=== PATIENT | male | born 1970 | race Caucasian/White ===

== ENCOUNTER 2021-11-11 08:45 | Inpatient (IN) ==
[2021-11-11 08:53] LABS: ABG BASE EXCESS 11.6 mmol/L (-2.0-2.0)
[2021-11-11 08:54] LABS: ABG ALLEN TEST POS; ABG HCO3 40.6 mmol/L (22-26)
[2021-11-11 09:18] VITALS: BMI 43.0
--- NOTE | 2021-11-11 09:21 | RAD ---
HISTORYSOB, pt states his told him his lips were blue this morning. Recently been in the hospital in [place] and was told all of his testing was normal including some mri.beatriz had doneSTUDYCHEST, 1 VIEWCOMPARISONCTA from 10/29/2021FINDINGSLINES AND TUBES: NoneHEART/ PULMONARY VASCULATURE: The heart is enlarged with pulmonary vasculature congestion.LUNGS/ PLEURA: Moderate increased interstitial and mild airspace opacities, likely reflecting edema. No sizable pleural effusion. No pneumothoraxOTHER: NoneIMPRESSIONFindings most consistent with CHF/volume overload with pulmonary edema.Electronically signed by: Harry Lyon (Nov 11, 2021 09:19:34)
[2021-11-11 09:30] LABS: BASOPHILS % (AUTO) 0.5 % (0.2-1.0); EOSINOPHILS % (AUTO) 0.5 % (0.9-2.9); HEMOGLOBIN 18.5 g/dL (13.5-18.0); LYMPHOCYTES # (AUTO) 1.3 X10^3/uL (1.3-2.9); LYMPHOCYTES % (AUTO) 14.4 % (21.0-51.0); MEAN CORPUSCULAR HEMOGLOBIN 32.5 pg (27.0-34.0); MEAN CORPUSCULAR VOLUME 98.5 fL (80.0-100.0); MONOCYTES # (AUTO) 0.9 x10^3/uL (0.3-0.8); MONOCYTES % (AUTO) 10.1 % (0.0-13.0); NEUTROPHILS # (AUTO) 6.7 x10^3/uL (2.2-4.8); NEUTROPHILS % (AUTO) 74.5 % (42.0-75.0); RED CELL DISTRIBUTION WIDTH 17.3 % (11.6-16.5)
[2021-11-11 09:32] LABS: HEMATOCRIT 56.1 % (42.0-54.0)
[2021-11-11 09:41] LABS: ALANINE AMINOTRANSFERASE 29 Units/L (12-78); ALBUMIN 3.3 g/dL (3.4-5.0); ALKALINE PHOSPHATASE 67 Units/L (46-116); ASPARTATE AMINO TRANSFERASE 25 Units/L (15-37); BLOOD UREA NITROGEN 16 mg/dL (7-18); CALCIUM 7.7 mg/dL (8.5-10.1); CARBON DIOXIDE 35.9 mmol/L (21-32); CHLORIDE 99 mmol/L (98-107); COR CA(FOR HYPOALB) 8.3 mg/dL (8.5-10.1); COR NA(FOR HYPERGLY) 137 mmol/L (136-145); CREATINE KINASE 49 Units/L (39-308); SODIUM 137 mmol/L (136-145); TOTAL PROTEIN 7.2 g/dL (6.4-8.2); eGFR NON BLACK RACES > 60 (>60)
[2021-11-11 09:43] LABS: INR 1.19 (0.8-1.3)
--- NOTE | 2021-11-11 10:30 | DR.SOBA ---
HPI Time Seen Time Seen by Provider: 11/11/21 10:22 Primary Care Physician Primary Care Physician: DENA HPI Comment HPI Comment: According to pt he has been experiencining increase shortness of breath gradual in onset and has slowly worsened with intermittent cough.has ahd fever but does not know the temp it self . Complaints Chief Complaint Doctors Comments: shortness of breath Chief Complaint:: PT. JUST RECENTLY GOT HOME FROM [facility], ON THE . PT. WAS SEEN IN OUR ER ON THE AND WAS TRANSFERRED DUE HYPOXIA. STATES PT. ALSO HAD PNEUMONIA WHEN HE WAS @ [facility]. PT. HAS HAD FEVER, COUGH AND SHORTNESS OF BREATH X 2 DAYS. PT. HAS BEEN EXPOSED TO THE FLU. O2 SAT EN ROUTE TO THE HOSPITAL WAS IN THE 50'S. COVID-19 Coronavirus risk:travel/contact w/high risk person: No Has patient experienced Coronavirus symptoms: Yes Coronavirus symptoms experienced: Fever, Coughing and Shortness of Breath Reviewed Nurses Notes Reviewed: Yes Source History Provided: Patient and Family Member Mode of Arrival Mode of Arrival: Wheelchair Timing Onset of Chief Complaint: 11/09/21 Duration Duration: Days Context Onset:: At Rest and With Light Exertion PE Risk Factors:: Immobilization History of:: COPD and CHF Currently on:: Inhaled Bronchodilators Prehospital Care:: None and Inhaled B2 Modifying Factors Worsens:: Exertion Improves:: Nothing Associated Signs and Symptoms Associated Signs and Symptoms: Fever and Cough If Cough Cough: Nonproductive PMH PMH Past Medical History: Yes Past Medical History: Diabetes and Hypertension Past Surgical History: No Surgical History: No History Family History History of Family Medical Conditions: Yes Family Medical History: Diabetes Mellitus, Cancer, [place] and Hypertension Social History Does patient currently use any type of tobacco product: No Have you used tobacco products in the last 12 months: Yes Type of Tobacco Use: Cigarettes Does any household member use tobacco: Yes Alcohol Use: None Do you use any recreational Drugs:: No Lives With: Spouse Lives Where: Home Travel Risk Coronavirus risk:travel/contact w/high risk person: No Has patient experienced Coronavirus symptoms: Yes Coronavirus symptoms experienced: Fever, Coughing and Shortness of Breath Infectious screening In the last 2 months have you had wt loss of >10#?: NO Have you had fever, night sweats or hemotysis?: No Have you traveled outside the country in the last 6 months?: No Isolation: Droplet ROS Review of Systems Constitutional: Chills, Fever and Fatigue Eyes: No Symptoms Reported ENTM: No Symptoms Reported Respiratoy: See HPI Cardiovascular: No Symptoms Reported Gastrointestinal/Abdominal: No Symptoms Reported Genitourinary: No Symptoms Reported Neurological: No Symptoms Reported Musculoskeletal: No Symptoms Reported Integumentary: No Symptoms Reported Hematologic/Lymphatic: No Symptoms Reported Endocrine: No Symptoms Reported Psychiatric: No Symptoms Reported PE Vital Signs Vitals: Temperature 99.2 F Pulse Rate 71 Respiratory Rate 20 Blood Pressure 162/83 O2 Sat by Pulse Oximetry 99 General Limitations: No Limitations General Appearance: Anxious and In Distress Head Head Exam: Normal Inspection and Atraumatic Eyes Eye exam: Normal Appearance, PERRL and EOMI ENT ENT Exam: Other (low lying oropharynx ) Neck Neck Exam: Normal Inspection Chest Chest Inspection: Normal Inspection Respiratory Respiratory Exam: Bilateral: Rales Cardiovascular Cardiovascular Exam: +S1 and +S2 Abdominal Exam Abdominal Exam: Normal Bowel Sounds and Soft Extremities Extremities Exam: Normal Inspection and Full ROM Neurologic Neurological Exam: Alert Skin Skin Exam: Dry MDM Additional Information Obtained Additional Findings:: hypoxia ,copd ,fever Differential Diagnosis Differential Diagnosis: CHF, COPD, Pneumonia, Pulmonary embolism, Respiratory Failure and URI COURSE Treatment Treatment: josé miguel spoke with Dr castro agreed to admit patient Reevaluation 1st: Improved ROR Labs Reviewed Laboratory Results Reviewed?: Yes Result Diagrams: 11/11/21 09:00 11/11/21 09:00 Laboratory: WBC 9.0 X10^3/uL (3.6-10.0) 11/11/21 09:00 RBC 5.70 X10^6/uL (4.7-6.0) 11/11/21 09:00 Hgb 18.5 g/dL (13.5-18.0) H 11/11/21 09:00 Hct 56.1 % (42.0-54.0) H* 11/11/21 09:00 MCV 98.5 fL (80.0-100.0) 11/11/21 09:00 MCH 32.5 pg (27.0-34.0) 11/11/21 09:00 MCHC 33.0 g/dL (33.0-35.0) 11/11/21 09:00 RDW 17.3 % (11.6-16.5) H 11/11/21 09:00 Plt Count 137 X10^3/uL (150.0-450.0) L 11/11/21 09:00 MPV 10.0 fL (7.4-11.0) 11/11/21 09:00 Neut % (Auto) 74.5 % (42.0-75.0) 11/11/21 09:00 Lymph % (Auto) 14.4 % (21.0-51.0) L 11/11/21 09:00 Mcmullen % (Auto) 10.1 % (0.0-13.0) 11/11/21 09:00 Eos % (Auto) 0.5 % (0.9-2.9) L 11/11/21 09:00 Baso % (Auto) 0.5 % (0.2-1.0) 11/11/21 09:00 Neut # (Auto) 6.7 x10^3/uL (2.2-4.8) H 11/11/21 09:00 Lymph # (Auto) 1.3 X10^3/uL (1.3-2.9) 11/11/21 09:00 Mcmullen # (Auto) 0.9 x10^3/uL (0.3-0.8) H 11/11/21 09:00 Eos # (Auto) 0.0 x10^3/uL (0.0-0.2) 11/11/21 09:00 Baso # (Auto) 0.0 X10^3/uL (0.0-0.1) 11/11/21 09:00 Absolute Nucleated RBC 0.1 /100WBC 11/11/21 09:00 PT 14.8 SECONDS (11.8-14.3) 11/11/21 09:25 INR Target Range - 11/11/21 09:25 INR 1.19 (0.8-1.3) 11/11/21 09:25 APTT 36.3 SECONDS (22.9-36.5) 11/11/21 09:25 PTT Comment - 11/11/21 09:25 D-Dimer 0.45 ug/ml (0.0-0.57) 11/11/21 09:25 Sample Site Rrad 11/11/21 08:47 ABG pH 7.330 (7.35-7.45) L 11/11/21 08:47 ABG pCO2 77.0 mmHg (35.0-45.0) H* 11/11/21 08:47 ABG pO2 39.0 mmHg (80.0-100.0) L* 11/11/21 08:47 ABG HCO3 40.6 mmol/L (22-26) H* 11/11/21 08:47 ABG O2 Saturation 69.0 % (90-100) L* 11/11/21 08:47 ABG Base Excess 11.6 mmol/L (-2.0-2.0) H 11/11/21 08:47 Adan Test Pos 11/11/21 08:47 A-a Gradient 14.0 mmHg 11/11/21 08:47 FiO2 21.0 11/11/21 08:47 Blood Gas Comments Nancy well ms 11/11/21 08:47 Sodium 137 mmol/L (136-145) 11/11/21 09:00 Corrected Sodium 137 mmol/L (136-145) 11/11/21 09:00 Potassium 4.4 mmol/L (3.5-5.1) 11/11/21 09:00 Chloride 99 mmol/L (98-107) 11/11/21 09:00 Carbon Dioxide 35.9 mmol/L (21-32) H 11/11/21 09:00 BUN 16 mg/dL (7-18) 11/11/21 09:00 Creatinine 1.10 mg/dL (0.70-1.30) 11/11/21 09:00 Est GFR (MDRD) Af Amer > 60 (>60) 11/11/21 09:00 Est GFR (MDRD) Non-Af > 60 (>60) 11/11/21 09:00 Glucose 119 mg/dL (65-99) H 11/11/21 09:00 Calcium 7.7 mg/dL (8.5-10.1) L 11/11/21 09:00 Corrected Calcium 8.3 mg/dL (8.5-10.1) L 11/11/21 09:00 Total Bilirubin 0.30 mg/dL (0.2-1.0) 11/11/21 09:00 AST 25 Units/L (15-37) 11/11/21 09:00 ALT 29 Units/L (12-78) 11/11/21 09:00 Alkaline Phosphatase 67 Units/L (46-116) 11/11/21 09:00 Creatine Kinase 49 Units/L (39-308) 11/11/21 09:00 Troponin I High Sens 20.4 ng/L (4.0-60.0) 11/11/21 09:00 B-Natriuretic Peptide 41.6 pg/mL (0-79) 11/11/21 09:00 Total Protein 7.2 g/dL (6.4-8.2) 11/11/21 09:00 Albumin 3.3 g/dL (3.4-5.0) L 11/11/21 09:00 Globulin 3.9 g/dL (2.5-4.5) 11/11/21 09:00 Albumin/Globulin Ratio 0.8 Ratio (1.1-2.1) L 11/11/21 09:00 SARS-CoV-2 (PCR) Negative (NEGATIVE) 11/11/21 09:00 Influenza Type A (PCR) Positive (NEGATIVE) A 11/11/21 09:00 Influenza Type B (PCR) Negative (NEGATIVE) 11/11/21 09:00 RSV (PCR) Negative (NEGATIVE) 11/11/21 09:00 Opioid Opioid Risk Tool Age (Jeremías box if 16-45): No History of Preadolescent Sexual Abuse: No Total: 0 Total Score Risk Category: Low Risk Copyright: Landon predicting aberrant behaviors Discharge Plan Diagnosis Discharge Problem: Hypoxia, Flu, COPD (chronic obstructive pulmonary disease), Pulmonary edema, Obesity Discharge Plan Patient Disposition: ADMITTED INPATIENT Condition: Stable Prescriptions: No Action No Known Home Medications 1 XX Health Concerns: Post Hospitalization: new medications and changes needed to prevent readmission or further decline. Pt educated and given instructions on all concerns. Plan of Treatment: Continue with present treatment and follow up plan. Pt is to keep follow up appointment as instructed and take medications as ordered. Follow ups/Referrals Follow ups/Referrals: DALI FERNANDES [Primary Care Provider] - 3 days Instructions Stand Alone Forms: [facility], Patient Portal, Social Distancing
[2021-11-11] MEDS ORDERED: LASIX IVP ONE ×2 (10:32→10:55)
[2021-11-11] MEDS ORDERED: SOLU-Medrol 125 MG VIAL IVP ONE (10:32)
[2021-11-11] MEDS ORDERED: ROCEPHIN 1 GRAM IV PREMIX 1 G/50 ML IV.SOLN. IV SCH (10:33)
[2021-11-11] MEDS ORDERED: ZITHROMAX INJ 500 MG VIAL IV ONE (10:55)
[2021-11-11] MEDS ORDERED: ROCEPHIN VIAL 1 GRAM ONE (10:55)
[2021-11-11] MEDS ORDERED: TAMIFLU PO ONE (10:55)
[2021-11-11] MEDS ORDERED: SOLU-Medrol 125 MG VIAL ONE (10:55)
[2021-11-11] MEDS ORDERED: NS 50 ML IV 50 ML IV ONE (10:56)
[2021-11-11] MEDS ORDERED: NS 250 ML IV 250 ML IV ONE (10:56)
[2021-11-11] MEDS: ZITHROMAX INJ 500 MG VIAL 500 MG in NS 250 ML IV 250 ML IV SCH (11:10)
[2021-11-11] MEDS: TAMIFLU PO SCH ×2 (11:12→20:29)
[2021-11-11 11:28] LABS: ABG BASE EXCESS 13.2 mmol/L (-2.0-2.0)
[2021-11-11 11:29] LABS: ABG ALLEN TEST POS; ABG HCO3 42.8 mmol/L (22-26)
[2021-11-11] MEDS: SOLU-Medrol 40 MG VIAL IVP SCH ×2 (15:15→21:26)
[2021-11-11] MEDS: NovoLIN R (or HumuLIN R) SUBCUT PRN ×2 (16:05→20:34)
--- NOTE | 2021-11-11 16:39 | DR.H&P ---
H&P History & Physical for Day of: H&P Date: 11/11/21 Chief Complaint Chief Complaint: Cough and shortness of breath Allergies Allergies Allergy/AdvReac Type Severity Reaction Status Date / Time No Known Drug Allergies Allergy Verified 11/11/21 12:40 History of Present Illness History of Present Illness: This is a 50-year-old white male who got out of [facility] in [place], [place] 2 days ago. He was there for pneumonia, cough and shortness of breath. He after he was sent home he was continuing to have cough with shortness of breath and just not getting any better. This morning he had a called EMS and they picked him up and in route to the hospital his O2 sat was in the 50s on room air. In the emergency department they had to put a BiPAP on him and fortunately were able to get his O2 sats up in the 90s with the BiPAP. However he try to take it off a few times as he was having difficulty breathing but every time he did his O2 sat would drop. Influenza test was done and he was positive for influenza A. Chest x-ray was done and showed increased interstitial markings consistent with fluid overload however his BNP was normal. Given his body habitus he appears he would possibly have underlying pickwickian syndrome however that is on observation. He was started on IV Solu-Medrol in the emergency department and also given jet nebs. After I saw the patient I talked him into staying as he was ready to go home. I will be admitting him up to the ICU for close monitoring given his O2 sats were dropping. I will also order Lasix 40 mg IV x1 and start him on IV Rocephin and Zithromax along with continued IV Solu-Medrol. I will also start him on Tamiflu 75 mg twice daily for his influenza A and hopefully can let him go home the next 1 to 2 days. Past Medical History Past Medical History: Diabetes and Hypertension Past Surgical History Surgical History: No History Family History Family Medical History: Diabetes Mellitus, Cancer, [place] and Hypertension Social History Does patient currently use any type of tobacco product: No Have you used tobacco products in the last 12 months: No Type of Tobacco Use: Cigarettes Does any household member use tobacco: No Alcohol Use: None Drug Use: None Medications Home Medications: No Known Drug Allergies Allergy (Verified 11/11/21 12:40) CONTINUE taking the following medications aspirin 81 mg capsule 81 mg PO DAILY 11/11/21 [History] atorvastatin 40 mg tablet 40 mg PO HS 11/11/21 [History] budesonide 0.5 mg/2 mL suspension for nebulization 0.5 mg inhalation BID 11/11/21 [History] furosemide 20 mg tablet 20 mg PO DAILY 11/11/21 [History] gabapentin 300 mg capsule 300 mg PO QID 11/11/21 [History] hydrocodone 7.5 mg-acetaminophen 325 mg tablet 7.5 tab PO QID 11/11/21 [History] lisinopril 10 mg tablet 10 mg PO BID 11/11/21 [History] meloxicam 7.5 mg tablet 7.5 mg PO DAILY 11/11/21 [History] metformin 500 mg tablet 500 mg PO QID 11/11/21 [History] metoprolol tartrate 50 mg tablet 50 mg PO BID 11/11/21 [History] Labs Result Diagrams: 11/11/21 09:00 11/11/21 09:00 Labs: Laboratory WBC 9.0 X10^3/uL (3.6-10.0) 11/11/21 09:00 RBC 5.70 X10^6/uL (4.7-6.0) 11/11/21 09:00 Hgb 18.5 g/dL (13.5-18.0) H 11/11/21 09:00 Hct 56.1 % (42.0-54.0) H* 11/11/21 09:00 MCV 98.5 fL (80.0-100.0) 11/11/21 09:00 MCH 32.5 pg (27.0-34.0) 11/11/21 09:00 MCHC 33.0 g/dL (33.0-35.0) 11/11/21 09:00 RDW 17.3 % (11.6-16.5) H 11/11/21 09:00 Plt Count 137 X10^3/uL (150.0-450.0) L 11/11/21 09:00 MPV 10.0 fL (7.4-11.0) 11/11/21 09:00 Neut % (Auto) 74.5 % (42.0-75.0) 11/11/21 09:00 Lymph % (Auto) 14.4 % (21.0-51.0) L 11/11/21 09:00 Cedar % (Auto) 10.1 % (0.0-13.0) 11/11/21 09:00 Eos % (Auto) 0.5 % (0.9-2.9) L 11/11/21 09:00 Baso % (Auto) 0.5 % (0.2-1.0) 11/11/21 09:00 Neut # (Auto) 6.7 x10^3/uL (2.2-4.8) H 11/11/21 09:00 Lymph # (Auto) 1.3 X10^3/uL (1.3-2.9) 11/11/21 09:00 Cedar # (Auto) 0.9 x10^3/uL (0.3-0.8) H 11/11/21 09:00 Eos # (Auto) 0.0 x10^3/uL (0.0-0.2) 11/11/21 09:00 Baso # (Auto) 0.0 X10^3/uL (0.0-0.1) 11/11/21 09:00 Absolute Nucleated RBC 0.1 /100WBC 11/11/21 09:00 PT 14.8 SECONDS (11.8-14.3) 11/11/21 09:25 INR Target Range - 11/11/21 09:25 INR 1.19 (0.8-1.3) 11/11/21 09:25 APTT 36.3 SECONDS (22.9-36.5) 11/11/21 09:25 PTT Comment - 11/11/21 09:25 D-Dimer 0.45 ug/ml (0.0-0.57) 11/11/21 09:25 Sample Site Lrad 11/11/21 11:20 ABG pH 7.320 (7.35-7.45) L 11/11/21 11:20 ABG pCO2 83.0 mmHg (35.0-45.0) H* 11/11/21 11:20 ABG pO2 161.0 mmHg (80.0-100.0) H 11/11/21 11:20 ABG HCO3 42.8 mmol/L (22-26) H* 11/11/21 11:20 ABG O2 Saturation 99.0 % (90-100) 11/11/21 11:20 ABG Base Excess 13.2 mmol/L (-2.0-2.0) H 11/11/21 11:20 Adan Test Pos 11/11/21 11:20 A-a Gradient 306.0 mmHg 11/11/21 11:20 FiO2 80.0 11/11/21 11:20 Blood Gas Comments Nancy well ms 11/11/21 11:20 Sodium 137 mmol/L (136-145) 11/11/21 09:00 Corrected Sodium 137 mmol/L (136-145) 11/11/21 09:00 Potassium 4.4 mmol/L (3.5-5.1) 11/11/21 09:00 Chloride 99 mmol/L (98-107) 11/11/21 09:00 Carbon Dioxide 35.9 mmol/L (21-32) H 11/11/21 09:00 BUN 16 mg/dL (7-18) 11/11/21 09:00 Creatinine 1.10 mg/dL (0.70-1.30) 11/11/21 09:00 Est GFR (MDRD) Af Amer > 60 (>60) 11/11/21 09:00 Est GFR (MDRD) Non-Af > 60 (>60) 11/11/21 09:00 Glucose 119 mg/dL (65-99) H 11/11/21 09:00 POC Glucose (mg/dL) 255 mg/dL (65-99) H 11/11/21 15:49 Calcium 7.7 mg/dL (8.5-10.1) L 11/11/21 09:00 Corrected Calcium 8.3 mg/dL (8.5-10.1) L 11/11/21 09:00 Total Bilirubin 0.30 mg/dL (0.2-1.0) 11/11/21 09:00 AST 25 Units/L (15-37) 11/11/21 09:00 ALT 29 Units/L (12-78) 11/11/21 09:00 Alkaline Phosphatase 67 Units/L (46-116) 11/11/21 09:00 Creatine Kinase 49 Units/L (39-308) 11/11/21 09:00 Troponin I High Sens 20.4 ng/L (4.0-60.0) 11/11/21 09:00 B-Natriuretic Peptide 41.6 pg/mL (0-79) 11/11/21 09:00 Total Protein 7.2 g/dL (6.4-8.2) 11/11/21 09:00 Albumin 3.3 g/dL (3.4-5.0) L 11/11/21 09:00 Globulin 3.9 g/dL (2.5-4.5) 11/11/21 09:00 Albumin/Globulin Ratio 0.8 Ratio (1.1-2.1) L 11/11/21 09:00 SARS-CoV-2 (PCR) Negative (NEGATIVE) 11/11/21 09:00 Influenza Type A (PCR) Positive (NEGATIVE) A 11/11/21 09:00 Influenza Type B (PCR) Negative (NEGATIVE) 11/11/21 09:00 RSV (PCR) Negative (NEGATIVE) 11/11/21 09:00 Physical Exam Vital Signs: Temperature 97.1 F Pulse Rate 75 Respiratory Rate 16 Blood Pressure 152/89 O2 Sat by Pulse Oximetry 91 Oriented: Normal Eyes: Normal Ear: Normal Nose: Normal Throat: Normal Respiratory: Diminished Throughout and Rhonchi Throughout Cardiovascular: Normal : Normal Auscultation: Bowel Sounds: Normal Palpation: Normal Tenderness: Normal Skin: Normal Musculoskeletal: Normal Psychiatric: Normal Mood Description: Calm Affect: Normal Speech Pattern: Clear Assessment/Plan (1) Pulmonary edema: Status: Acute Plan: Lasix 40 mg IV x1 may repeat again this afternoon if he still showing signs of underlying pulmonary edema. Recheck chest x-ray and BNP tomorrow morning. (2) Influenza A: Status: Acute Plan: Tamiflu 75 mg p.o. twice daily (3) COPD (chronic obstructive pulmonary disease): Status: Acute Plan: Check labs with IV Solu-Medrol. Also covering the patient with IV Rocephin and Zithromax. (4) Obesity: Status: Acute (5) Hypoxia: Status: Acute Plan: Supplemental O2 continue BiPAP treatment. IV Solu-Medrol along with IV Lasix for his pulmonary edema and Tamiflu to treat the underlying influenza he has. (6) Diabetes mellitus with diabetic neuropathy: Qualifiers: Diabetes mellitus usp insulin use: without usp use Diabetes mellitus type: type 2 Qualified Code(s): E11.40 - Type 2 diabetes mellitus with diabetic neuropathy, unspecified Status: Acute Plan: I will resume the patient's (7) HTN (hypertension): Qualifiers: Hypertension type: primary hypertension Qualified Code(s): I10 - Essential (primary) hypertension Status: Acute Plan: I will resume patient's regular home blood pressure medication. Review H&P Reviewed: Yes Patient was examined?: Yes
[2021-11-11 16:44] LABS: ABG BASE EXCESS 18.5 mmol/L (-2.0-2.0)
[2021-11-11 16:47] LABS: ABG ALLEN TEST POS
[2021-11-11] MEDS ORDERED: NEURONTIN CAP 300 MG PO SCH (17:00)
[2021-11-11] MEDS ORDERED: GLUCOPHAGE PO SCH (17:00)
[2021-11-11] MEDS: DUONEB 0.5 MG/3 MG (3 mL) NEB SCH ×2 (17:16→21:23)
[2021-11-11 18:07] LABS: ABG BASE EXCESS 14.6 mmol/L (-2.0-2.0)
[2021-11-11 18:08] LABS: ABG ALLEN TEST POS; ABG HCO3 43.5 mmol/L (22-26)
[2021-11-11] MEDS ORDERED: GLUCOPHAGE ONE (18:33)
[2021-11-11] MEDS: GLUCOPHAGE PO SCH (18:36)
[2021-11-11] MEDS: LOPRESSOR TAB 50 MG PO SCH (20:28)
[2021-11-11] MEDS: LIPITOR TAB 40 MG PO SCH (20:28)
[2021-11-11] MEDS: SNACK - Diabetic Appropriate PO SCH (20:41)
[2021-11-11] MEDS: NEURONTIN CAP 300 MG PO SCH (21:05)
[2021-11-11] MEDS: ZESTRIL TAB 10 MG PO SCH (21:05)
[2021-11-11] MEDS: PULMICORT NEB TX 0.5 MG NEB SCH (21:23)
[2021-11-12] MEDS: DUONEB 0.5 MG/3 MG (3 mL) NEB SCH ×6 (00:40→20:50)
[2021-11-12] MEDS: VALIUM PO PRN ×2 (02:14→20:13)
[2021-11-12 04:58] LABS: ABG BASE EXCESS 12.3 mmol/L (-2.0-2.0)
[2021-11-12 04:59] LABS: ABG ALLEN TEST POS; ABG HCO3 41.7 mmol/L (22-26)
[2021-11-12] MEDS ORDERED: GLUCOPHAGE ONE (05:08)
[2021-11-12 05:30] LABS: BASOPHILS % (AUTO) 0.3 % (0.2-1.0); LYMPHOCYTES # (AUTO) 0.6 X10^3/uL (1.3-2.9); LYMPHOCYTES % (AUTO) 7.5 % (21.0-51.0); MEAN CORPUSCULAR HEMOGLOBIN 32.1 pg (27.0-34.0); MEAN CORPUSCULAR HGB CONC 32.6 g/dL (33.0-35.0); MEAN CORPUSCULAR VOLUME 98.5 fL (80.0-100.0); MEAN PLATELET VOLUME 9.5 fL (7.4-11.0); MONOCYTES # (AUTO) 0.6 x10^3/uL (0.3-0.8); MONOCYTES % (AUTO) 7.1 % (0.0-13.0); NEUTROPHILS # (AUTO) 7.2 x10^3/uL (2.2-4.8); NEUTROPHILS % (AUTO) 85.1 % (42.0-75.0); RED BLOOD COUNT 5.92 X10^6/uL (4.7-6.0); RED CELL DISTRIBUTION WIDTH 17.5 % (11.6-16.5); WHITE BLOOD COUNT 8.5 X10^3/uL (3.6-10.0)
[2021-11-12] MEDS: SOLU-Medrol 40 MG VIAL IVP SCH ×3 (05:34→21:34)
[2021-11-12] MEDS: NEURONTIN CAP 300 MG PO SCH ×3 (05:34→21:34)
[2021-11-12 05:51] LABS: HEMATOCRIT 58.3 % (42.0-54.0)
[2021-11-12 05:58] LABS: ALANINE AMINOTRANSFERASE 28 Units/L (12-78); ALBUMIN 3.4 g/dL (3.4-5.0); ALKALINE PHOSPHATASE 72 Units/L (46-116); ASPARTATE AMINO TRANSFERASE 18 Units/L (15-37); BLOOD UREA NITROGEN 18 mg/dL (7-18); CALCIUM 8.5 mg/dL (8.5-10.1); CARBON DIOXIDE 42.1 mmol/L (21-32); CHLORIDE 99 mmol/L (98-107); COR NA(FOR HYPERGLY) 142 mmol/L (136-145); CREATININE 1.08 mg/dL (0.70-1.30); SODIUM 140 mmol/L (136-145); TOTAL PROTEIN 7.8 g/dL (6.4-8.2); eGFR NON BLACK RACES > 60 (>60)
[2021-11-12] MEDS: GLUCOPHAGE PO SCH (06:09)
--- NOTE | 2021-11-12 07:33 | RAD ---
HISTORYsob copd exacerbation hypoxia chf influenza aSTUDYCHEST, 1 [id number]/01/2022FINDINGSLINES AND TUBES: NoneHEART/ PULMONARY VASCULATURE: Cardiomegaly and pulmonary vasculature congestion are unchanged.LUNGS/ PLEURA: Moderate diffuse increased interstitial markings and bibasilar airspace opacities appear unchanged. No pneumothoraxIMPRESSIONNo significant interval change.Electronically signed by: Harry Lyon (Nov 12, 2021 07:32:07)
[2021-11-12] MEDS ORDERED: NS 250 ML IV 250 ML IV ONE (08:32)
[2021-11-12] MEDS: PULMICORT NEB TX 0.5 MG NEB SCH ×2 (08:41→20:50)
[2021-11-12] MEDS: ZITHROMAX INJ 500 MG VIAL 500 MG in NS 250 ML IV 250 ML IV SCH (08:41)
[2021-11-12] MEDS: ASPIRIN EC 81 MG PO SCH (08:44)
[2021-11-12] MEDS: MOBIC TAB 15 MG PO SCH (08:44)
[2021-11-12] MEDS: TAMIFLU PO SCH ×2 (08:44→20:12)
[2021-11-12] MEDS: ZESTRIL TAB 10 MG PO SCH ×2 (08:44→20:14)
[2021-11-12] MEDS: LOPRESSOR TAB 50 MG PO SCH ×2 (08:57→20:14)
[2021-11-12] MEDS ORDERED: FLUZONE II4 or AFLURIA II4 IM ONE (09:00)
[2021-11-12] MEDS: ROCEPHIN VIAL 1 GRAM 1 G in NS 100 ML IV 100 ML IV SCH (11:00)
[2021-11-12] MEDS: NovoLIN R (or HumuLIN R) SUBCUT PRN ×2 (11:24→20:25)
[2021-11-12] MEDS: NICOTINE PATCH TD SCH (15:12)
--- NOTE | 2021-11-12 15:45 | PCM.PROG ---
Progress Note Progress Note for Day of Date of Exam: 11/12/21 Subjective Subjective: Mr. Bell was feeling better this morning. He sitting up on the couch. He reports his breathing is almost back to normal but it is noted that he is on 4 L nasal cannula this morning and his O2 sat is 90. When he talks he drops down to 8889%. Auscultation revealed he had decreased air entry bilaterally but no wheezes today. His PCO2 is still high at 81 and PO2 that is just above 60. His hemoglobin remains high at 19. I suspect his underlying polycythemia is probably secondary to him being a cigarette smoker however he reports quitting 2 weeks ago. We will continue him on his current treatment since he seems to be responding to it slowly. Plan on discharge home once he can maintain his O2 sat 94% or higher. He does not use home O2 he reports. Past Medical Family Social History Allergies: Allergies No Known Drug Allergies Allergy (Verified 11/11/21 12:40) Review of Systems ROS: No change since H&P Vital Signs and I&O's Vital Signs: Temperature 98.4 F Pulse Rate 69 Respiratory Rate 23 Blood Pressure 111/69 O2 Sat by Pulse Oximetry 81 Intake and Output: Intake & Output 11/10/21 11/11/21 11/12/21 11/13/21 11:59 11:59 11:59 11:59 Intake Total 800 / 800 765 / 765 Balance 800 / 800 765 / 765 Physical Exam Oriented: Normal Eyes: Normal Ear: Normal Nose: Normal Throat: Normal Respiratory: Diminished Cardiovascular: Normal : Normal Auscultation: Bowel Sounds: Normal Tenderness: Normal Skin: Normal Musculoskeletal: Normal Psychiatric: Normal Mood Description: Calm Affect: Normal Speech Pattern: Clear and Appropriate Laboratory and Diagnostics Result Diagrams: 11/12/21 04:45 11/12/21 04:45 Labs: Laboratory WBC 8.5 X10^3/uL (3.6-10.0) 11/12/21 04:45 RBC 5.92 X10^6/uL (4.7-6.0) 11/12/21 04:45 Hgb 19.0 g/dL (13.5-18.0) H 11/12/21 04:45 Hct 58.3 % (42.0-54.0) H* 11/12/21 04:45 MCV 98.5 fL (80.0-100.0) 11/12/21 04:45 MCH 32.1 pg (27.0-34.0) 11/12/21 04:45 MCHC 32.6 g/dL (33.0-35.0) L 11/12/21 04:45 RDW 17.5 % (11.6-16.5) H 11/12/21 04:45 Plt Count 165 X10^3/uL (150.0-450.0) 11/12/21 04:45 MPV 9.5 fL (7.4-11.0) 11/12/21 04:45 Neut % (Auto) 85.1 % (42.0-75.0) H 11/12/21 04:45 Lymph % (Auto) 7.5 % (21.0-51.0) L 11/12/21 04:45 Pendleton % (Auto) 7.1 % (0.0-13.0) 11/12/21 04:45 Eos % (Auto) 0.0 % (0.9-2.9) L 11/12/21 04:45 Baso % (Auto) 0.3 % (0.2-1.0) 11/12/21 04:45 Neut # (Auto) 7.2 x10^3/uL (2.2-4.8) H 11/12/21 04:45 Lymph # (Auto) 0.6 X10^3/uL (1.3-2.9) L 11/12/21 04:45 Pendleton # (Auto) 0.6 x10^3/uL (0.3-0.8) 11/12/21 04:45 Eos # (Auto) 0.0 x10^3/uL (0.0-0.2) 11/12/21 04:45 Baso # (Auto) 0.0 X10^3/uL (0.0-0.1) 11/12/21 04:45 Absolute Nucleated RBC 0.1 /100WBC 11/12/21 04:45 PT 14.8 SECONDS (11.8-14.3) 11/11/21 09:25 INR Target Range - 11/11/21 09:25 INR 1.19 (0.8-1.3) 11/11/21 09:25 APTT 36.3 SECONDS (22.9-36.5) 11/11/21 09:25 PTT Comment - 11/11/21 09:25 D-Dimer 0.45 ug/ml (0.0-0.57) 11/11/21 09:25 Sample Site Lr 11/12/21 05:00 ABG pH 7.320 (7.35-7.45) L 11/12/21 05:00 ABG pCO2 81.0 mmHg (35.0-45.0) H* 11/12/21 05:00 ABG pO2 59.0 mmHg (80.0-100.0) L 11/12/21 05:00 ABG HCO3 41.7 mmol/L (22-26) H* 11/12/21 05:00 ABG O2 Saturation 88.0 % (90-100) L 11/12/21 05:00 ABG Base Excess 12.3 mmol/L (-2.0-2.0) H 11/12/21 05:00 Adan Test Pos 11/12/21 05:00 A-a Gradient 268.0 mmHg 11/12/21 05:00 FiO2 60.0 11/12/21 05:00 Blood Gas Comments Nancy well sw 11/12/21 05:00 Sodium 140 mmol/L (136-145) 11/12/21 04:45 Corrected Sodium 142 mmol/L (136-145) 11/12/21 04:45 Potassium 4.7 mmol/L (3.5-5.1) 11/12/21 04:45 Chloride 99 mmol/L (98-107) 11/12/21 04:45 Carbon Dioxide 42.1 mmol/L (21-32) H 11/12/21 04:45 BUN 18 mg/dL (7-18) 11/12/21 04:45 Creatinine 1.08 mg/dL (0.70-1.30) 11/12/21 04:45 Est GFR (MDRD) Af Amer > 60 (>60) 11/12/21 04:45 Est GFR (MDRD) Non-Af > 60 (>60) 11/12/21 04:45 Glucose 189 mg/dL (65-99) H 11/12/21 04:45 POC Glucose (mg/dL) 290 mg/dL (65-99) H 11/12/21 11:07 Calcium 8.5 mg/dL (8.5-10.1) 11/12/21 04:45 Corrected Calcium TNP 11/12/21 04:45 Total Bilirubin 0.30 mg/dL (0.2-1.0) 11/12/21 04:45 AST 18 Units/L (15-37) 11/12/21 04:45 ALT 28 Units/L (12-78) 11/12/21 04:45 Alkaline Phosphatase 72 Units/L (46-116) 11/12/21 04:45 Creatine Kinase 49 Units/L (39-308) 11/11/21 09:00 Troponin I High Sens 20.4 ng/L (4.0-60.0) 11/11/21 09:00 B-Natriuretic Peptide 21.0 pg/mL (0-79) 11/12/21 04:45 Total Protein 7.8 g/dL (6.4-8.2) 11/12/21 04:45 Albumin 3.4 g/dL (3.4-5.0) 11/12/21 04:45 Globulin 4.4 g/dL (2.5-4.5) 11/12/21 04:45 Albumin/Globulin Ratio 0.8 Ratio (1.1-2.1) L 11/12/21 04:45 SARS-CoV-2 (PCR) Negative (NEGATIVE) 11/11/21 09:00 Influenza Type A (PCR) Positive (NEGATIVE) A 11/11/21 09:00 Influenza Type B (PCR) Negative (NEGATIVE) 11/11/21 09:00 RSV (PCR) Negative (NEGATIVE) 11/11/21 09:00 Plan (1) Pulmonary edema: Status: Acute Narrative Support Text: Patient has abnormal chest x-ray showing increased vascular congestion. Plan: Start Lasix 40 mg IV twice daily to see if this helps him with his hypoxia. (2) Influenza A: Status: Acute Plan: Tamiflu 75 mg p.o. twice daily (3) COPD (chronic obstructive pulmonary disease): Status: Acute Plan: Check labs with IV Solu-Medrol. Also covering the patient with IV Rocephin and Zithromax. (4) Obesity: Status: Acute (5) Hypoxia: Status: Acute Plan: Supplemental O2 continue BiPAP treatment. IV Solu-Medrol along with IV Lasix for his pulmonary edema and Tamiflu to treat the underlying influenza he has. (6) Diabetes mellitus with diabetic neuropathy: Status: Acute Qualifiers: Diabetes mellitus residential insulin use: without local intermodal truck driver use Diabetes mellitus type: type 2 Qualified Code(s): E11.40 - Type 2 diabetes mellitus with diabetic neuropathy, unspecified Plan: I will resume the patient's (7) HTN (hypertension): Status: Acute Qualifiers: Hypertension type: primary hypertension Qualified Code(s): I10 - Essential (primary) hypertension Plan: I will resume patient's regular home blood pressure medication.
[2021-11-12] MEDS: LASIX IVP SCH (17:15)
[2021-11-12] MEDS: LIPITOR TAB 40 MG PO SCH (20:15)
[2021-11-12] MEDS: SNACK - Diabetic Appropriate PO SCH (20:24)
--- NOTE | 2021-11-12 22:06 | RAD ---
HISTORYhypoxia, pulmonary edemaSTUDYCHEST, 1 VIEWCOMPARISONOctober 2021TECHNIQUEChest radiographic imaging, AP portable projection, 1 imageFINDINGSModerate cardiomegaly.Diffuse increased interstitial markings.Linear airspace disease in the right lower lobe.No pleural effusion.No pneumothorax.No acute osseous abnormality.IMPRESSIONNo significant interval acute cardiopulmonary changes.Electronically signed by: Galindo Greene (Nov 12, 2021 22:04:18)
[2021-11-13] MEDS: DUONEB 0.5 MG/3 MG (3 mL) NEB SCH ×6 (00:49→21:10)
[2021-11-13 04:59] LABS: MEAN CORPUSCULAR HEMOGLOBIN 31.9 pg (27.0-34.0); MONOCYTES # (AUTO) 0.5 x10^3/uL (0.3-0.8)
[2021-11-13 05:03] LABS: BASOPHILS % (AUTO) 0.2 % (0.2-1.0); HEMOGLOBIN 18.8 g/dL (13.5-18.0); LYMPHOCYTES # (AUTO) 0.9 X10^3/uL (1.3-2.9); LYMPHOCYTES % (AUTO) 6.2 % (21.0-51.0); MEAN CORPUSCULAR HGB CONC 32.4 g/dL (33.0-35.0); MEAN CORPUSCULAR VOLUME 98.4 fL (80.0-100.0); MEAN PLATELET VOLUME 9.5 fL (7.4-11.0); MONOCYTES % (AUTO) 3.7 % (0.0-13.0); NEUTROPHILS # (AUTO) 12.4 x10^3/uL (2.2-4.8); NEUTROPHILS % (AUTO) 89.9 % (42.0-75.0); RED BLOOD COUNT 5.89 X10^6/uL (4.7-6.0); RED CELL DISTRIBUTION WIDTH 17.2 % (11.6-16.5); WHITE BLOOD COUNT 13.9 X10^3/uL (3.6-10.0)
[2021-11-13 05:05] LABS: ALANINE AMINOTRANSFERASE 21 Units/L (12-78); ALBUMIN 3.2 g/dL (3.4-5.0); ALKALINE PHOSPHATASE 66 Units/L (46-116); ASPARTATE AMINO TRANSFERASE 13 Units/L (15-37); BLOOD UREA NITROGEN 25 mg/dL (7-18); CALCIUM 8.3 mg/dL (8.5-10.1); CHLORIDE 100 mmol/L (98-107); COR CA(FOR HYPOALB) 8.9 mg/dL (8.5-10.1); COR NA(FOR HYPERGLY) 144 mmol/L (136-145); CREATININE 1.06 mg/dL (0.70-1.30); SODIUM 143 mmol/L (136-145); TOTAL PROTEIN 7.4 g/dL (6.4-8.2); eGFR NON BLACK RACES > 60 (>60)
[2021-11-13] MEDS ORDERED: GLUCOPHAGE ONE (05:08)
[2021-11-13 05:11] LABS: CARBON DIOXIDE 44.2 mmol/L (21-32)
[2021-11-13] MEDS: NEURONTIN CAP 300 MG PO SCH ×3 (05:13→21:05)
[2021-11-13] MEDS: SOLU-Medrol 40 MG VIAL IVP SCH ×3 (05:13→21:07)
[2021-11-13] MEDS: GLUCOPHAGE PO SCH (06:05)
[2021-11-13] MEDS: ASPIRIN EC 81 MG PO SCH (08:18)
[2021-11-13] MEDS: ROCEPHIN VIAL 1 GRAM 1 G in NS 100 ML IV 100 ML IV SCH (08:18)
[2021-11-13] MEDS: LASIX IVP SCH ×2 (08:19→17:05)
[2021-11-13] MEDS: MOBIC TAB 15 MG PO SCH (08:19)
[2021-11-13] MEDS: LOPRESSOR TAB 50 MG PO SCH ×2 (08:19→21:06)
[2021-11-13] MEDS: TAMIFLU PO SCH ×2 (08:19→21:04)
[2021-11-13] MEDS: ZESTRIL TAB 10 MG PO SCH ×2 (08:19→21:04)
[2021-11-13] MEDS: NICOTINE PATCH TD SCH (08:19)
[2021-11-13] MEDS: ZITHROMAX INJ 500 MG VIAL 500 MG in NS 250 ML IV 250 ML IV SCH (08:21)
[2021-11-13 08:29] LABS: ABG BASE EXCESS 14.3 mmol/L (-2.0-2.0)
[2021-11-13 08:30] LABS: ABG ALLEN TEST POS
[2021-11-13] MEDS: NORCO 7.5/325 MG TAB PO PRN ×3 (08:52→21:15)
[2021-11-13] MEDS: PULMICORT NEB TX 0.5 MG NEB SCH ×2 (09:00→21:10)
--- NOTE | 2021-11-13 11:08 | RAD ---
HISTORYCOPD SOBSTUDYAP chestCOMPARISONOct2021FINDINGSModerate cardiomegaly again noted with central pulmonary vascular prominence. No consolidation, pneumothorax or large pleural effusion is evident. Radiographic detail is significantly limited on this nonstandard exam.IMPRESSIONCardiomegaly with pulmonary vascular congestion.Electronically signed by: DIANE GALLEGOS (Nov 13, 2021 11:07:03)
[2021-11-13 11:38] LABS: ABG HCO3 41.8 mmol/L (22-26)
[2021-11-13] MEDS: LOVENOX INJ 40 MG SYR SC SCH (11:52)
[2021-11-13] MEDS: NovoLIN R (or HumuLIN R) SUBCUT PRN ×2 (11:53→21:24)
--- NOTE | 2021-11-13 14:34 | PCM.PROG ---
Progress Note Progress Note for Day of Date of Exam: 11/13/21 Subjective Subjective: Mr. Bell his feeling better this morning. He sitting up on the couch. The patient reports he is breathing okay today. He had no acute problems last night or yesterday afternoon. He seems to be slowly responding to the medication were given to him as he is improving some daily. ABG was done this morning and has improved since yesterday's ABG. His PCO2 is now down in the 60s at this time which is improved from yesterday. He currently is using nasal cannula at 4 L and is maintaining O2 sat in mid 80s at to the upper 80s. Past Medical Family Social History Allergies: Allergies No Known Drug Allergies Allergy (Verified 11/11/21 12:40) Review of Systems ROS: No change since H&P Vital Signs and I&O's Vital Signs: Temperature 98.0 F Pulse Rate 63 Respiratory Rate 20 Blood Pressure 134/72 O2 Sat by Pulse Oximetry 85 Intake and Output: Intake & Output 11/11/21 11/12/21 11/13/21 11/14/21 11:59 11:59 11:59 11:59 Intake Total 800 / 800 1325 / 1325 Balance 800 / 800 1325 / 1325 Physical Exam Oriented: Normal Eyes: Normal Ear: Normal Nose: Normal Throat: Normal Respiratory: Diminished Cardiovascular: Normal : Normal Auscultation: Bowel Sounds: Normal Tenderness: Normal Skin: Normal Musculoskeletal: Normal Psychiatric: Normal Mood Description: Calm Affect: Normal Speech Pattern: Clear and Appropriate Laboratory and Diagnostics Result Diagrams: 11/13/21 04:05 11/13/21 04:05 Labs: 11/12/21 15:55 Sputum - Expectorated Sputum Sputum Culture - Preliminary 11/12/21 15:55 Sputum - Expectorated Sputum - Final Laboratory WBC 13.9 X10^3/uL (3.6-10.0) H 11/13/21 04:05 RBC 5.89 X10^6/uL (4.7-6.0) 11/13/21 04:05 Hgb 18.8 g/dL (13.5-18.0) H 11/13/21 04:05 Hct 58.0 % (42.0-54.0) H* 11/13/21 04:05 MCV 98.4 fL (80.0-100.0) 11/13/21 04:05 MCH 31.9 pg (27.0-34.0) 11/13/21 04:05 MCHC 32.4 g/dL (33.0-35.0) L 11/13/21 04:05 RDW 17.2 % (11.6-16.5) H 11/13/21 04:05 Plt Count 176 X10^3/uL (150.0-450.0) 11/13/21 04:05 MPV 9.5 fL (7.4-11.0) 11/13/21 04:05 Neut % (Auto) 89.9 % (42.0-75.0) H 11/13/21 04:05 Lymph % (Auto) 6.2 % (21.0-51.0) L 11/13/21 04:05 [place] % (Auto) 3.7 % (0.0-13.0) 11/13/21 04:05 Eos % (Auto) 0.0 % (0.9-2.9) L 11/13/21 04:05 Baso % (Auto) 0.2 % (0.2-1.0) 11/13/21 04:05 Neut # (Auto) 12.4 x10^3/uL (2.2-4.8) H 11/13/21 04:05 Lymph # (Auto) 0.9 X10^3/uL (1.3-2.9) L 11/13/21 04:05 [place] # (Auto) 0.5 x10^3/uL (0.3-0.8) 11/13/21 04:05 Eos # (Auto) 0.0 x10^3/uL (0.0-0.2) 11/13/21 04:05 Baso # (Auto) 0.0 X10^3/uL (0.0-0.1) 11/13/21 04:05 Absolute Nucleated RBC 0.2 /100WBC 11/13/21 04:05 PT 14.8 SECONDS (11.8-14.3) 11/11/21 09:25 INR Target Range - 11/11/21 09:25 INR 1.19 (0.8-1.3) 11/11/21 09:25 APTT 36.3 SECONDS (22.9-36.5) 11/11/21 09:25 PTT Comment - 11/11/21 09:25 D-Dimer 0.45 ug/ml (0.0-0.57) 11/11/21 09:25 Sample Site Rr 11/13/21 08:13 ABG pH 7.410 (7.35-7.45) 11/13/21 08:13 ABG pCO2 66.0 mmHg (35.0-45.0) H* 11/13/21 08:13 ABG pO2 55.0 mmHg (80.0-100.0) L 11/13/21 08:13 ABG HCO3 41.8 mmol/L (22-26) H* 11/13/21 08:13 ABG O2 Saturation 88.0 % (90-100) L 11/13/21 08:13 ABG Base Excess 14.3 mmol/L (-2.0-2.0) H 11/13/21 08:13 Adan Test Pos 11/13/21 08:13 A-a Gradient 119.0 mmHg 11/13/21 08:13 FiO2 36.0 11/13/21 08:13 Blood Gas Comments Pt bladimir well 11/13/21 08:13 Sodium 143 mmol/L (136-145) 11/13/21 04:05 Corrected Sodium 144 mmol/L (136-145) 11/13/21 04:05 Potassium 4.4 mmol/L (3.5-5.1) 11/13/21 04:05 Chloride 100 mmol/L (98-107) 11/13/21 04:05 Carbon Dioxide 44.2 mmol/L (21-32) H 11/13/21 04:05 BUN 25 mg/dL (7-18) H 11/13/21 04:05 Creatinine 1.06 mg/dL (0.70-1.30) 11/13/21 04:05 Est GFR (MDRD) Af Amer > 60 (>60) 11/13/21 04:05 Est GFR (MDRD) Non-Af > 60 (>60) 11/13/21 04:05 Glucose 141 mg/dL (65-99) H 11/13/21 04:05 POC Glucose (mg/dL) 277 mg/dL (65-99) H 11/13/21 11:41 Calcium 8.3 mg/dL (8.5-10.1) L 11/13/21 04:05 Corrected Calcium 8.9 mg/dL (8.5-10.1) 11/13/21 04:05 Total Bilirubin 0.30 mg/dL (0.2-1.0) 11/13/21 04:05 AST 13 Units/L (15-37) L 11/13/21 04:05 ALT 21 Units/L (12-78) 11/13/21 04:05 Alkaline Phosphatase 66 Units/L (46-116) 11/13/21 04:05 Creatine Kinase 49 Units/L (39-308) 11/11/21 09:00 Troponin I High Sens 20.4 ng/L (4.0-60.0) 11/11/21 09:00 B-Natriuretic Peptide 21.0 pg/mL (0-79) 11/12/21 04:45 Total Protein 7.4 g/dL (6.4-8.2) 11/13/21 04:05 Albumin 3.2 g/dL (3.4-5.0) L 11/13/21 04:05 Globulin 4.2 g/dL (2.5-4.5) 11/13/21 04:05 Albumin/Globulin Ratio 0.8 Ratio (1.1-2.1) L 11/13/21 04:05 SARS-CoV-2 (PCR) Negative (NEGATIVE) 11/11/21 09:00 Influenza Type A (PCR) Positive (NEGATIVE) A 11/11/21 09:00 Influenza Type B (PCR) Negative (NEGATIVE) 11/11/21 09:00 RSV (PCR) Negative (NEGATIVE) 11/11/21 09:00 Radiology Reviewed: Yes Plan (1) Pulmonary edema: Status: Acute Plan: Start Lasix 40 mg IV twice daily to see if this helps him with his hypoxia. (2) Influenza A: Status: Acute Plan: Tamiflu 75 mg p.o. twice daily (3) COPD (chronic obstructive pulmonary disease): Status: Acute Plan: Check labs with IV Solu-Medrol. Also covering the patient with IV Rocephin and Zithromax. I will add budesonide to his nebulizer treatments. I will also add ipratropium as well. (4) Obesity: Status: Acute (5) Hypoxia: Status: Acute Plan: Supplemental O2 continue BiPAP treatment. IV Solu-Medrol along with IV Lasix for his pulmonary edema and Tamiflu to treat the underlying influenza he has. (6) Diabetes mellitus with diabetic neuropathy: Status: Acute Qualifiers: Diabetes mellitus intermediate accountant insulin use: without detention use Diabetes mellitus type: type 2 Qualified Code(s): E11.40 - Type 2 diabetes mellitus with diabetic neuropathy, unspecified Plan: I will resume the patient's (7) HTN (hypertension): Status: Acute Qualifiers: Hypertension type: primary hypertension Qualified Code(s): I10 - Essential (primary) hypertension Plan: I will resume patient's regular home blood pressure medication.
[2021-11-13] MEDS: LIPITOR TAB 40 MG PO SCH (21:04)
[2021-11-13] MEDS: VALIUM PO PRN (21:06)
[2021-11-13] MEDS: SNACK - Diabetic Appropriate PO SCH (21:07)
[2021-11-14] MEDS: DUONEB 0.5 MG/3 MG (3 mL) NEB SCH ×3 (01:00→08:20)
[2021-11-14 04:50] LABS: BASOPHILS # (AUTO) 0.1 X10^3/uL (0.0-0.1); BASOPHILS % (AUTO) 0.6 % (0.2-1.0); HEMATOCRIT 55.8 % (42.0-54.0); HEMOGLOBIN 17.9 g/dL (13.5-18.0); LYMPHOCYTES # (AUTO) 1.1 X10^3/uL (1.3-2.9); LYMPHOCYTES % (AUTO) 6.6 % (21.0-51.0); MEAN CORPUSCULAR HEMOGLOBIN 31.3 pg (27.0-34.0); MEAN CORPUSCULAR HGB CONC 32.2 g/dL (33.0-35.0); MEAN CORPUSCULAR VOLUME 97.4 fL (80.0-100.0); MEAN PLATELET VOLUME 9.8 fL (7.4-11.0); MONOCYTES # (AUTO) 0.7 x10^3/uL (0.3-0.8); MONOCYTES % (AUTO) 4.5 % (0.0-13.0); NEUTROPHILS # (AUTO) 14.3 x10^3/uL (2.2-4.8); NEUTROPHILS % (AUTO) 88.3 % (42.0-75.0); RED BLOOD COUNT 5.73 X10^6/uL (4.7-6.0); RED CELL DISTRIBUTION WIDTH 17.4 % (11.6-16.5); WHITE BLOOD COUNT 16.2 X10^3/uL (3.6-10.0)
[2021-11-14 04:56] LABS: ALANINE AMINOTRANSFERASE 20 Units/L (12-78); ALBUMIN 3.1 g/dL (3.4-5.0); ALKALINE PHOSPHATASE 61 Units/L (46-116); ASPARTATE AMINO TRANSFERASE 10 Units/L (15-37); BLOOD UREA NITROGEN 33 mg/dL (7-18); CALCIUM 8.1 mg/dL (8.5-10.1); CARBON DIOXIDE 42.6 mmol/L (21-32); CHLORIDE 100 mmol/L (98-107); COR CA(FOR HYPOALB) 8.8 mg/dL (8.5-10.1); COR NA(FOR HYPERGLY) 143 mmol/L (136-145); CREATININE 1.23 mg/dL (0.70-1.30); SODIUM 141 mmol/L (136-145); TOTAL PROTEIN 6.8 g/dL (6.4-8.2); eGFR NON BLACK RACES > 60 (>60)
[2021-11-14] MEDS ORDERED: GLUCOPHAGE ONE (05:31)
[2021-11-14] MEDS: SOLU-Medrol 40 MG VIAL IVP SCH (05:34)
[2021-11-14] MEDS: NEURONTIN CAP 300 MG PO SCH (05:35)
[2021-11-14] MEDS: NORCO 7.5/325 MG TAB PO PRN (05:52)
[2021-11-14] MEDS: GLUCOPHAGE PO SCH (06:01)
[2021-11-14 06:37] LABS: ABG BASE EXCESS 14.1 mmol/L (-2.0-2.0)
[2021-11-14 06:38] LABS: ABG ALLEN TEST POS; ABG HCO3 40.8 mmol/L (22-26)
[2021-11-14] MEDS: LOVENOX INJ 40 MG SYR SC SCH (08:15)
[2021-11-14] MEDS: LASIX IVP SCH (08:16)
[2021-11-14] MEDS: ASPIRIN EC 81 MG PO SCH (08:16)
[2021-11-14] MEDS: ROCEPHIN VIAL 1 GRAM 1 G in NS 100 ML IV 100 ML IV SCH (08:17)
[2021-11-14] MEDS: NICOTINE PATCH TD SCH (08:17)
[2021-11-14] MEDS: MOBIC TAB 15 MG PO SCH (08:19)
[2021-11-14] MEDS: TAMIFLU PO SCH (08:19)
[2021-11-14] MEDS: ZESTRIL TAB 10 MG PO SCH (08:19)
[2021-11-14] MEDS: PULMICORT NEB TX 0.5 MG NEB SCH (08:20)
[2021-11-14] MEDS: LOPRESSOR TAB 50 MG PO SCH (08:33)
[2021-11-14] MEDS: ZITHROMAX INJ 500 MG VIAL 500 MG in NS 250 ML IV 250 ML IV SCH (09:16)
[2021-11-14 10:24] VITALS: BP 129/76
== END 2021-11-14 11:01 | disposition left against medical advice (07) | DRG 189 ==
LOC: ER 08:45 → ICU 12:50
PROVIDERS: ADMIT Family Medicine; ATTEND Family Medicine
DX: Z20.822 Contact with and (suspected) exposure to COVID-19; R09.02 Hypoxemia; E11.40 Type 2 diabetes mellitus with diabetic neuropathy, unspecified; J10.1 Influenza due to other identified influenza virus with other respiratory manifestations; J81.1 Chronic pulmonary edema; Z53.29 Procedure and treatment not carried out because of patient's decision for other reasons; J44.9 Chronic obstructive pulmonary disease, unspecified; R94.31 Abnormal electrocardiogram [ECG] [EKG]; E11.65 Type 2 diabetes mellitus with hyperglycemia; I10 Essential (primary) hypertension; R06.02 Shortness of breath; E66.9 Obesity, unspecified

== ENCOUNTER 2023-02-05 08:49 | Inpatient (IN) ==
--- NOTE | 2023-02-05 08:59 | DR.SOBA ---
HPI Time Seen Time Seen by Provider: 02/05/23 08:59 Complaints Chief Complaint Doctors Comments: 52-year-old male presents for evaluation. Having increasing swelling of his lower extremities, having worsening shortness of breath. Has a cough, productive of small amount of white clear phlegm, bubbly. Denies any fever, chills, chest pain, nausea vomiting or diarrhea. Has been compliant with his medications. Has a history of CHF. Reviewed Nurses Notes Reviewed: Yes Source History Provided: Patient Mode of Arrival Mode of Arrival: Wheelchair PMH PMH Past Medical History: Diabetes and Hypertension Past Surgical History: No Surgical History: No History Family History Family Medical History: Diabetes Mellitus, Cancer, [place] and Hypertension Social History Does patient currently use any type of tobacco product: Yes Do you use any recreational Drugs:: No ROS Review of Systems Constitutional: Weakness Eyes: No Symptoms Reported ENTM: No Symptoms Reported Respiratoy: Moist Cough and Short of Breath Cardiovascular: Edema Gastrointestinal/Abdominal: No Symptoms Reported Genitourinary: No Symptoms Reported Neurological: No Symptoms Reported Musculoskeletal: No Symptoms Reported Integumentary: No Symptoms Reported Hematologic/Lymphatic: No Symptoms Reported All Other Systems: Reviewed and Negative PE Vital Signs Vitals: Vital Signs Temperature 98.9 F Pulse Rate 66 Pulse Rate 70 Pulse Rate 68 Pulse Rate 70 Pulse Rate 63 Pulse Rate 67 Pulse Rate 66 Pulse Rate 63 Pulse Rate 60 Pulse Rate 60 Pulse Rate 55 Pulse Rate 58 Pulse Rate 59 Pulse Rate 61 Pulse Rate 59 Pulse Rate 57 Pulse Rate 60 Pulse Rate 57 Pulse Rate 67 Pulse Rate 64 Pulse Rate 71 Respiratory Rate 28 Respiratory Rate 31 Respiratory Rate 25 Respiratory Rate 49 Respiratory Rate 32 Respiratory Rate 32 Respiratory Rate 31 Respiratory Rate 27 Respiratory Rate 27 Respiratory Rate 28 Respiratory Rate 30 Respiratory Rate 29 Respiratory Rate 26 Respiratory Rate 23 Respiratory Rate 26 Respiratory Rate 28 Respiratory Rate 25 Respiratory Rate 25 Respiratory Rate 25 Respiratory Rate 33 Respiratory Rate 20 Blood Pressure 117/60 O2 Sat by Pulse Oximetry 88 O2 Sat by Pulse Oximetry 88 O2 Sat by Pulse Oximetry 89 O2 Sat by Pulse Oximetry 85 O2 Sat by Pulse Oximetry 90 O2 Sat by Pulse Oximetry 75 O2 Sat by Pulse Oximetry 91 O2 Sat by Pulse Oximetry 88 O2 Sat by Pulse Oximetry 88 O2 Sat by Pulse Oximetry 91 O2 Sat by Pulse Oximetry 91 O2 Sat by Pulse Oximetry 92 O2 Sat by Pulse Oximetry 89 O2 Sat by Pulse Oximetry 88 O2 Sat by Pulse Oximetry 88 O2 Sat by Pulse Oximetry 88 O2 Sat by Pulse Oximetry 88 O2 Sat by Pulse Oximetry 89 O2 Sat by Pulse Oximetry 87 General General Appearance: Alert and In No Apparent Distress Eyes Eye exam: PERRL and EOMI ENT ENT Exam: Normal Oropharynx and Mucous Membranes Moist Neck Neck Exam: Normal Inspection Respiratory Respiratory Exam: Other (Decreased breath sounds at the bases); negative Acce ssory Muscle Use or Respiratory Distress Cardiovascular Cardiovascular Exam: Regular Rate, Normal Rhythm and Normal Heart Sounds Abdominal Exam Abdominal Exam: Normal Bowel Sounds and Soft; negative Tenderness Extremities Extremities Exam: Edema (3+ pitting, bilateral lower extremities) Neurologic Neurological Exam: Alert, Oriented X3 and CN II-XII Intact; negative Motor Sensory Deficit Skin Skin Exam: Warm and Dry COURSE Treatment Treatment: 52-year-old male presents with exertional dyspnea, increasing edema. Workup initiated. Patient given Lasix 40 mg IV. 1359 -chest x-ray shows cardiomegaly with bilateral increased markings consistent with either CHF/pneumonia. White count is normal at 8700 CMP overall unremarkable. BNP slightly elevated 134. Troponin is negative, 2-hour repeat troponin negative. Was given IV Rocephin for coverage of possible pneumonia. COVID respiratory panel is pending. Patient is a smoker. Seems to have a combination of COPD/CHF, possible pneumonia. Patient given a DuoNeb treatment, IV Solu-Medrol. Oxygen helping, when he takes off drops to 88%. Recommend admission for further treatment. Discussed with Dr. Sue on, on-call for the hospital, accepts admission. ROR Labs Reviewed Laboratory Results Reviewed?: Yes 02/05/23 09:10 02/05/23 09:10 Laboratory: WBC 8.7 X10^3/uL (3.6-10.0) 02/05/23 09:10 RBC 5.00 X10^6/uL (4.7-6.0) 02/05/23 09:10 Hgb 17.3 g/dL (13.5-18.0) 02/05/23 09:10 Hct 52.5 % (42.0-54.0) 02/05/23 09:10 MCV 104.9 fL (80.0-100.0) H 02/05/23 09:10 MCH 34.5 pg (27.0-34.0) H 02/05/23 09:10 MCHC 32.9 g/dL (33.0-35.0) L 02/05/23 09:10 RDW 18.1 % (11.6-16.5) H 02/05/23 09:10 Plt Count 156 X10^3/uL (150.0-450.0) 02/05/23 09:10 MPV 8.6 fL (7.4-11.0) 02/05/23 09:10 Neut % (Auto) 75.6 % (42.0-75.0) H 02/05/23 09:10 Lymph % (Auto) 13.3 % (21.0-51.0) L 02/05/23 09:10 [place] % (Auto) 10.0 % (0.0-13.0) 02/05/23 09:10 Eos % (Auto) 0.6 % (0.9-2.9) L 02/05/23 09:10 Baso % (Auto) 0.5 % (0.2-1.0) 02/05/23 09:10 Neut # (Auto) 6.6 x10^3/uL (2.2-4.8) H 02/05/23 09:10 Lymph # (Auto) 1.2 X10^3/uL (1.3-2.9) L 02/05/23 09:10 [place] # (Auto) 0.9 x10^3/uL (0.3-0.8) H 02/05/23 09:10 Eos # (Auto) 0.1 x10^3/uL (0.0-0.2) 02/05/23 09:10 Baso # (Auto) 0.0 X10^3/uL (0.0-0.1) 02/05/23 09:10 Absolute Nucleated RBC 0.0 /100WBC 02/05/23 09:10 Sodium 139 mmol/L (136-145) 02/05/23 09:10 Corrected Sodium TNP 02/05/23 09:10 Potassium 3.9 mmol/L (3.5-5.1) 02/05/23 09:10 Chloride 98 mmol/L (98-107) 02/05/23 09:10 Carbon Dioxide 38.6 mmol/L (21-32) H 02/05/23 09:10 BUN 16 mg/dL (7-18) 02/05/23 09:10 Creatinine 1.04 mg/dL (0.70-1.30) 02/05/23 09:10 Est GFR (MDRD) Af Amer > 60 (>60) 02/05/23 09:10 Est GFR (MDRD) Non-Af > 60 (>60) 02/05/23 09:10 Glucose 91 mg/dL (65-99) 02/05/23 09:10 Calcium 8.7 mg/dL (8.5-10.1) 02/05/23 09:10 Corrected Calcium 9.3 mg/dL (8.5-10.1) 02/05/23 09:10 Total Bilirubin 0.60 mg/dL (0.2-1.0) 02/05/23 09:10 AST 20 Units/L (15-37) 02/05/23 09:10 ALT 13 Units/L (12-78) 02/05/23 09:10 Alkaline Phosphatase 93 Units/L (46-116) 02/05/23 09:10 Troponin I High Sens 10.9 ng/L (4.0-60.0) 02/05/23 11:53 B-Natriuretic Peptide 134 pg/mL (0-79) H 02/05/23 09:10 Total Protein 7.5 g/dL (6.4-8.2) 02/05/23 09:10 Albumin 3.2 g/dL (3.4-5.0) L 02/05/23 09:10 Globulin 4.3 g/dL (2.5-4.5) 02/05/23 09:10 Albumin/Globulin Ratio 0.7 Ratio (1.1-2.1) L 02/05/23 09:10 XRAY XRAY Interpreted by: Both X-ray Results: EXAM: CHEST, 1 VIEW HISTORY: SHORT OF BREATH; COMPARISON: 11/13/2021 FINDINGS: The cardiomediastinal silhouette is widened but stable. Scattered bilateral airspace opacities. No pneumothorax or effusion. No acute osseous abnormality. IMPRESSION: Scattered bilateral opacities which may reflect edema or pneumonia. Continued follow-up recommended. THIS IS AN ELECTRONICALLY VERIFIED FINAL REPORT 02/05/2023 1:01 PM - Electronically signed by Rory Bell MD EKG Rate: 63 [place]: RAD Rhythm: NSR ST: Normal Opioid Opioid Risk Tool Age (Jeremías box if 16-45): No History of Preadolescent Sexual Abuse: No Total: 0 Total Score Risk Category: Low Risk Copyright: Dipesh SMITH predicting aberrant behaviors Discharge Plan Diagnosis Discharge Problem: Acute dyspnea, COPD (chronic obstructive pulmonary disease), CHF (congestive heart failure) Discharge Plan Patient Disposition: ADMITTED INPATIENT Condition: Stable Prescriptions: No Action atorvastatin 40 mg Tablet 40 mg PO HS metformin 500 mg Tablet 500 mg PO TID meloxicam 7.5 mg Tablet 7.5 mg PO DAILY hydrocodone-acetaminophen [[place]] 7.5-325 mg Tablet 7.5 tab PO QID PRN lisinopril 10 mg Tablet 10 mg PO BID metoprolol tartrate 50 mg Tablet 50 mg PO BID gabapentin 300 mg Capsule 300 mg PO TID budesonide 0.5 mg/2 mL Suspension For Nebulization 0.5 mg inhalation BID furosemide 20 mg Tablet 40 mg PO BID aspirin 81 mg Capsule 81 mg PO DAILY ipratropium-albuterol 0.5 mg-3 mg(2.5 mg base)/3 mL Solution For Nebulization 3 ml INHALATION Q4-6H PRNQty: 1 0RF budesonide-formoterol 160-4.5 mcg/actuation Hfa Aerosol Inhaler 1 inh INHALATION BID Qty: 1 0RF Health Concerns: Post Hospitalization: new medications and changes needed to prevent readmission or further decline. Pt educated and given instructions on all concerns. Plan of Treatment: Continue with present treatment and follow up plan. Pt is to keep follow up appointment as instructed and take medications as ordered. Orders to Discharge Patient Discharge Orders: Transfer (Routine); Ordered 02/05/23 Ordered By: Sylvain Rivera Follow ups/Referrals Follow ups/Referrals: DALI FERNANDES [Primary Care Provider] - 3 days
[2023-02-05 09:00] VITALS: BMI 43.0
--- NOTE | 2023-02-05 09:10 | EKG ---
Test Reason : sob Blood Pressure : */* mmHG Vent. Rate : 63 BPM Atrial Rate : 63 BPM P-R Int : 156 ms QRS Dur : 96 ms QT Int : 406 ms P-R-T Axes : 66 143 62 degrees QTc Int : 415 ms Normal sinus rhythm Right axis deviation Abnormal ECG No previous ECGs available Confirmed by Lion Madrid ([id number]) on 02/05/2023 10:46:56 AM Referred By: Confirmed By: Lion Madrid
[2023-02-05] MEDS ORDERED: LASIX IVP ONE ×2 (09:15→09:16)
[2023-02-05 09:20] LABS: BASOPHILS % (AUTO) 0.5 % (0.2-1.0); EOSINOPHILS # (AUTO) 0.1 x10^3/uL (0.0-0.2); EOSINOPHILS % (AUTO) 0.6 % (0.9-2.9); HEMATOCRIT 52.5 % (42.0-54.0); HEMOGLOBIN 17.3 g/dL (13.5-18.0); LYMPHOCYTES # (AUTO) 1.2 X10^3/uL (1.3-2.9); LYMPHOCYTES % (AUTO) 13.3 % (21.0-51.0); MEAN CORPUSCULAR HEMOGLOBIN 34.5 pg (27.0-34.0); MEAN CORPUSCULAR HGB CONC 32.9 g/dL (33.0-35.0); MEAN CORPUSCULAR VOLUME 104.9 fL (80.0-100.0); MEAN PLATELET VOLUME 8.6 fL (7.4-11.0); MONOCYTES # (AUTO) 0.9 x10^3/uL (0.3-0.8); NEUTROPHILS # (AUTO) 6.6 x10^3/uL (2.2-4.8); NEUTROPHILS % (AUTO) 75.6 % (42.0-75.0); PLATELET COUNT 156 X10^3/uL (150.0-450.0); RED CELL DISTRIBUTION WIDTH 18.1 % (11.6-16.5); WHITE BLOOD COUNT 8.7 X10^3/uL (3.6-10.0)
[2023-02-05 09:40] LABS: ALANINE AMINOTRANSFERASE 13 Units/L (12-78); ALBUMIN 3.2 g/dL (3.4-5.0); ALKALINE PHOSPHATASE 93 Units/L (46-116); ASPARTATE AMINO TRANSFERASE 20 Units/L (15-37); BLOOD UREA NITROGEN 16 mg/dL (7-18); CALCIUM 8.7 mg/dL (8.5-10.1); CARBON DIOXIDE 38.6 mmol/L (21-32); CHLORIDE 98 mmol/L (98-107); COR CA(FOR HYPOALB) 9.3 mg/dL (8.5-10.1); CREATININE 1.04 mg/dL (0.70-1.30); GLUCOSE 91 mg/dL (65-99); POTASSIUM 3.9 mmol/L (3.5-5.1); SODIUM 139 mmol/L (136-145); TOTAL PROTEIN 7.5 g/dL (6.4-8.2); eGFR NON BLACK RACES > 60 (>60)
[2023-02-05] MEDS ORDERED: SOLU-Medrol 125 MG VIAL IVP ONE (12:10)
[2023-02-05] MEDS ORDERED: DUONEB 0.5 MG/3 MG (3 mL) NEB ONE ×3 (12:10→16:19)
[2023-02-05] MEDS ORDERED: ROCEPHIN VIAL 1 GRAM IVP ONE (12:10)
[2023-02-05] MEDS ORDERED: SOLU-Medrol 125 MG VIAL ONE (12:23)
[2023-02-05] MEDS ORDERED: ROCEPHIN VIAL 1 GRAM ONE (12:23)
--- NOTE | 2023-02-05 13:05 | RAD ---
EXAM:CHEST, 1 VIEWHISTORY:SHORT OF BREATH;COMPARISON:11/13/2021FINDINGS:The cardiomediastinal silhouette is widened but stable.Scattered bilateral airspace opacities. No pneumothorax or effusion.No acute osseous abnormality.IMPRESSION:Scattered bilateral opacities which may reflect edema or pneumonia. Continued follow-up recommended.THIS IS AN ELECTRONICALLY VERIFIED FINAL [id number]/05/2023 1:01 PM - Electronically signed by Rory Bell MD
[2023-02-05] MEDS ORDERED: CONSULT PHARMACY - POTASSIUM & MAGNESIUM XX SCH (15:37)
[2023-02-05] MEDS: ROCEPHIN VIAL 1 GRAM 1 G in NS 100 ML IV 100 ML IV SCH (15:48)
[2023-02-05] MEDS: DUONEB 0.5 MG/3 MG (3 mL) NEB SCH ×2 (16:30→18:36)
[2023-02-05] MEDS: LASIX IVP SCH (16:49)
[2023-02-05] MEDS ORDERED: GLUCOPHAGE ONE (21:00)
[2023-02-05] MEDS ORDERED: LIPITOR TAB 40 MG PO SCH (21:00)
[2023-02-05] MEDS: GLUCOPHAGE PO SCH (21:21)
[2023-02-05] MEDS: LOPRESSOR TAB 50 MG PO SCH (21:22)
[2023-02-05] MEDS: ZESTRIL TAB 10 MG PO SCH (21:22)
[2023-02-05] MEDS: NEURONTIN CAP 300 MG PO SCH (21:23)
[2023-02-05] MEDS: SOLU-Medrol 40 MG VIAL IVP SCH (21:24)
[2023-02-05] MEDS: PULMICORT NEB TX 0.5 MG NEB SCH (21:30)
[2023-02-05] MEDS: NORCO 7.5/325 MG TAB PO PRN (22:07)
[2023-02-06] MEDS: DUONEB 0.5 MG/3 MG (3 mL) NEB SCH ×2 (00:15→05:45)
[2023-02-06 04:13] LABS: HEMOGLOBIN 16.9 g/dL (13.5-18.0)
[2023-02-06 04:16] LABS: BASOPHILS % (AUTO) 0.5 % (0.2-1.0); HEMATOCRIT 50.7 % (42.0-54.0); LYMPHOCYTES % (AUTO) 12.1 % (21.0-51.0); MEAN CORPUSCULAR HEMOGLOBIN 34.5 pg (27.0-34.0); MEAN CORPUSCULAR HGB CONC 33.3 g/dL (33.0-35.0); MEAN CORPUSCULAR VOLUME 103.7 fL (80.0-100.0); MEAN PLATELET VOLUME 8.7 fL (7.4-11.0); MONOCYTES # (AUTO) 0.7 x10^3/uL (0.3-0.8); MONOCYTES % (AUTO) 8.4 % (0.0-13.0); NEUTROPHILS # (AUTO) 6.6 x10^3/uL (2.2-4.8); PLATELET COUNT 149 X10^3/uL (150.0-450.0); RED BLOOD COUNT 4.89 X10^6/uL (4.7-6.0); WHITE BLOOD COUNT 8.3 X10^3/uL (3.6-10.0)
[2023-02-06 04:21] LABS: ALANINE AMINOTRANSFERASE 10 Units/L (12-78); ALKALINE PHOSPHATASE 89 Units/L (46-116); ASPARTATE AMINO TRANSFERASE 16 Units/L (15-37); BLOOD UREA NITROGEN 19 mg/dL (7-18); CALCIUM 8.7 mg/dL (8.5-10.1); CHLORIDE 97 mmol/L (98-107); COR CA(FOR HYPOALB) 9.5 mg/dL (8.5-10.1); CREATININE 1.12 mg/dL (0.70-1.30); GLUCOSE 105 mg/dL (65-99); POTASSIUM 3.7 mmol/L (3.5-5.1); SODIUM 139 mmol/L (136-145); TOTAL PROTEIN 7.3 g/dL (6.4-8.2); eGFR NON BLACK RACES > 60 (>60)
[2023-02-06] MEDS ORDERED: GLUCOPHAGE ONE (04:44)
[2023-02-06] MEDS: NEURONTIN CAP 300 MG PO SCH (05:04)
[2023-02-06] MEDS: GLUCOPHAGE PO SCH (05:04)
[2023-02-06] MEDS: SOLU-Medrol 40 MG VIAL IVP SCH (05:04)
[2023-02-06] MEDS ORDERED: NovoLIN R (or HumuLIN R) SUBCUT PRN (05:05)
[2023-02-06] MEDS ORDERED: K-DUR TAB 20 MEQ PO SCH ×2 (06:00→09:00)
[2023-02-06] MEDS ORDERED: MAG-OX TAB PO SCH (06:00)
[2023-02-06] MEDS ORDERED: CONSULT PHARMACY - POTASSIUM & MAGNESIUM XX SCH (07:00)
[2023-02-06] MEDS: NORCO 7.5/325 MG TAB PO PRN (07:50)
[2023-02-06 08:15] VITALS: BP 126/65; PULSE 77; RESP 22; TEMP 97.8; O2SAT 89
--- NOTE | 2023-02-06 08:30 | RAD ---
EXAM:CHEST, 1 VIEWHISTORY:SOB;COMPARISON:02/05/2023 r.br.br.br Linear areas in the mid right and mid left lung could be focal scarring atelectasis.Cardiomegaly is present.The bones are unremarkable.IMPRESSION:1. Cardiomegaly2. Bilateral atelectasis versus scarringTHIS IS AN ELECTRONICALLY VERIFIED FINAL [id number]/06/2023 8:19 AM - Electronically signed by Michael Thompson MD
[2023-02-06] MEDS: ROCEPHIN VIAL 1 GRAM 1 G in NS 100 ML IV 100 ML IV SCH (08:40)
[2023-02-06] MEDS: MAG-OX TAB PO SCH ×2 (08:42→10:27)
[2023-02-06] MEDS: LASIX IVP SCH (08:42)
[2023-02-06] MEDS: ZESTRIL TAB 10 MG PO SCH (08:43)
[2023-02-06] MEDS: LOPRESSOR TAB 50 MG PO SCH (08:43)
[2023-02-06] MEDS ORDERED: ASPIRIN EC 81 MG PO SCH (09:00)
[2023-02-06] MEDS ORDERED: MOBIC TAB 15 MG PO SCH (09:00)
[2023-02-06] MEDS ORDERED: LOVENOX INJ 40 MG SYR SC SCH (09:00)
[2023-02-06] MEDS: PULMICORT NEB TX 0.5 MG NEB SCH (09:06)
[2023-02-06] MEDS ORDERED: SNACK - Diabetic Appropriate PO SCH (20:00)
--- NOTE | 2023-02-18 12:39 | DR.CARTERS ---
Short Stay Summary - Admission Date Date of Admission: 02/05/23 - Discharge Date Discharge Date: 02/06/23 - Admission Diagnoses (1) Influenza B Status: Acute (2) Acute bronchitis Status: Acute (3) Hypoxia Status: Acute (4) CHF (congestive heart failure) Status: Chronic (5) HTN (hypertension) Status: Chronic (6) COPD (chronic obstructive pulmonary disease) Status: Chronic (7) Diabetes mellitus with diabetic neuropathy Status: Chronic - Discharge Medications Discharge Medications: Home Medication List albuterol sulfate 90 mcg/actuation aerosol inhaler (ProAir HFA) 2 puff inhalation Q4-6H PRN #1 g 02/06/23 [Rx] methylprednisolone 4 mg tablets in a dose pack (Medrol (David)) See Rx Instructions .Route .COMPLEX #1 ea 02/06/23 [Rx] oseltamivir 75 mg capsule (Tamiflu) 75 mg PO BID #10 caps 02/06/23 [Rx] Prescriptions: albuterol sulfate [ProAir HFA] Phillip Sue methylprednisolone [Medrol (David)] Phillip Sue oseltamivir [Tamiflu] Phillip Sue - Hospital Course Hospital Course: IS A 52 YEAR OLD PATIENT OF [facility]. HE HAS A PMH OF DM II, HTN, COPD, HYPERLIPIDEMIA, CHF. HE PRESENTED TO THE ER WITH COMPLAINTS OF LOWER EXTREMITY SWELLING, INCREASED SHORTNESS OF BREATH, AND A PRODUCTIVE COUGH. HE DENIES FEVER, CHILLS, CHEST PAIN, NAUSEA, VOMITING, OR DIARRHEA. HE REPORTS THAT SYMPTOMS STARTED 3-4 DAYS AGO AND HAD PROGRESSIVELY GOTTEN WORSE. SHORTNESS OF BREATH IS WORSE ON EXERTION. ON ARRIVAL, HIS VITALS WERE: 98.9-71-20-87%-117/60. HE WAS PLACED ON OXYGEN VIA NASAL CANNULA AT 5 LPM. SATURATIONS INCREASED TO THE LOWER 91-92%. LABS WERE OBTAINED. WBC 8.7, RBC 5.00, HGB 17.3, HCT 52.5, PLT COUNT 156, SODIUM 139, POTASSIUM 3.9, CHLORIDE 98, CARBON DIOXIDE 38.6, BUN 16, CREATININE 1.04, GLUCOSE 91, CALCIUM 8.7, TOTAL BILI 0.60, AST 20, ALT 13, ALK PHOS 93, TROPONIN 13.2, BNP 134, TOTAL PROTEIN 7.5, ALBUMIN 3.2. COVID AND RSV NEGATIVE. HE WAS POSITIVE FOR INFLUENZA B. SPUTUM CULTURES WERE SET UP. AN EKG WAS OBTAINED AND REVEALED SINUS RHYTHM WITH HR 63 BPM. A CHEST XRAY WAS OBTAINED AND REVEALED: Scattered bilateral opacities which may reflect edema or pneumonia. WHILE IN THE ER, PATIENT REMOVED OXYGEN AND HIS SATURATIONS DROPPED TO 69%. IN THE ER, HE WAS GIVEN LASIX 40MG IV X 1 DOSE, DUONEB X 1 DOSE, ROCEPHIN 1G IV X 1 DOSE, SOLU-MEDROL 125MG IV X 1 DOSE. HE WAS ADMITTED TO THE HOSPTIAL FOR FURTHER EVALUATION AND TREATMENT OF INFLUENZA B, ACUTE BRONCHITIS, HYPOXIA, COPD, CHF. ON ADMISSION, HE WAS STARTED ON ROCEPHIN 1G IV DAILY, FUROSEMIDE 40MG IV BID, DUONEBS Q6H, PULMICORT NEBS BID, SOLU-MEDROL 40MG IV Q8H, OTBS ACHS, HUMULIN R SLIDING SCALE, LOVENOX 40MG SCA DAILY, AND THE POTASSIUM AND MAGNESIUM PROTOCOLS. HIS HOME MEDICATIONS OF ECOTRIN, ATORVASTATIN, GABAPENTIN, NORCO, LISINOPRIL, MELOXICAM, METFORMIN, METOPROLOL WERE RESUMED. OTHERWISE, WE PLANNED TO FOLLOW-UP WITH AM LABS AND CONTINUE TO MONITOR. ON THE MORNING FOLLOWING ROUND, PATIENT IS ALERT AND ORIENTED, SITTING UP IN BED. HE REPORTS SHORTNESS OF BREATH AT TIMES, BUT OVERALL, REPORTS IMPROVEMENT IN SYMTPOMS THIS MORNING. HE CONTINUES TO HAVE A PRODUCTIVE COUGH. ON EXAMINATION, HEART IS REGULAR IN RATE AND RHYTHM. BILATERAL LUNGS ARE NOTED WITH DIMINISHED LUNG SOUNDS THROUGHOUT. ABDOMEN IS ROUND, SOFT, AND NON-TENDER WITH NORMAL BOWEL SOUNDS NOTED IN ALL QUADRANTS. BILATERAL LOWER EXTREMITIES ARE NOTED WITH 1+ PITTING EDEMA. HIS VITALS THIS MORNING WERE: 97.8-77-22-90%-126/65. LABS WERE REPEATED. HE REMAINS HEMODYNAMICALLY STABLE. WE PLANNED FOR DISCHARGE. INSTRUCTIONS FOR MEDICATIONS AND FOLLOW-UP WERE DISCUSSED WITH PATIENT AND HIS SPOUSE. THEY VERBALIZED UNDERSTANDING OF ORDERS. HE WAS GIVEN NEW PRESCRIPTIONS FOR TAMIFLU 75MG BID, MEDROL DOSEPACK, AND ALBUTEROL INHALER Q4-6H PRN. HE WAS INSTRUCTED TO CONTINUE HIS REGULAR MEDICATIONS WITH NO CHANGES MADE TO DOSAGES. HE WAS ADVISED TO FOLLOW-UP WITH HIS PCP ON 02/13/23 AT 11AM. TIME SPENT ON CLINICAL ASSESSMENT, REVIEWING LABS AND IMAGING, DECISION MAKING, DISCHARGE INSTRUCTIONS, PREPARING DISCHARGE PAPERS, AND DOCUMENTATION GREATER THAN 75 MINUTES. - Discharge Plan Disposition: 01 HOME, SELF-CARE Condition: Stable Prescriptions: albuterol sulfate [ProAir HFA] 2 puff inhalation Q4-6H PRN #1 g PRN Reason: methylprednisolone [Medrol (David)] See Rx Instructions .Route .COMPLEX #1 ea oseltamivir [Tamiflu] 75 mg PO BID #10 caps - Follow up/Referrals Follow up/Referrals: DALI FERNANDES [Primary Care Provider] - 02/13/23 11:00 am - Instructions Instructions: Shortness of Breath, Adult, [id number], Influenza, Adult, [id number], Shortness of Breath, Adult, Cough, Adult, Heart Failure Eating Plan Additional Instructions: DIET TOLERATED. ACTIVITY TOLERATED. Forms: Excuse From Work or School, Post Hospital Follow Up Care
== END 2023-02-06 12:15 | disposition home or self-care (01) | DRG 293 ==
LOC: ER 08:49 → MED/SURG 14:06 → ICU 15:27
PROVIDERS: ADMIT Internal Medicine; ATTEND Internal Medicine

== ENCOUNTER 2023-03-25 07:37 | Observation (INO) ==
--- NOTE | 2023-03-25 08:32 | DR.AMS ---
HPI Time Seen Time Seen by Provider: 03/25/23 08:25 PCP Primary Care Physician: Darshan Cline Complaint Chief Complaint:: EMS states that for three days he has been more altered and was refusing to wear his O2. The told EMS that his doctor has recently increased his lasix due to excessive swelling. She also states that he has refused to wear his home O2 for about 3 days. His O2 saturation was in the low 80s when EMS arrived. On presentation his O2 was 95 on 4 liters. Patient is unable to answer questions appropriately, and states that he has no health problems and doesn't know why he is here. COVID-19 Coronavirus risk:travel/contact w/high risk person: No Has patient experienced Coronavirus symptoms: No Source History Provided: Patient and EMS Mode of Arrival Mode of Arrival: Stretcher Timing Onset of Chief Complaint: 03/22/23 PMH PMH Past Medical History: Yes Past Medical History: CHF, Diabetes and Hypertension Past Surgical History: No Surgical History: No History Family History History of Family Medical Conditions: Yes Family Medical History: Diabetes Mellitus, Cancer and Hypertension Social History Does patient currently use any type of tobacco product: Yes Have you used tobacco products in the last 12 months: Yes Type of Tobacco Use: Cigarettes Does any household member use tobacco: Yes Alcohol Use: None Do you use any recreational Drugs:: No Lives With: Family Lives Where: Home Travel Risk Coronavirus risk:travel/contact w/high risk person: No Has patient experienced Coronavirus symptoms: No Infectious screening In the last 2 months have you had wt loss of >10#?: NO Have you had fever, night sweats or hemotysis?: No Have you traveled outside the country in the last 6 months?: No Isolation: Standard PE Vitals Vital Signs: Temp Pulse Resp BP Pulse Ox O2 Del Method 03/25/23 10:30 92 H 27 H 03/25/23 10:15 89 19 91 L 03/25/23 10:00 141/101 03/25/23 10:00 92 H 55 H 03/25/23 08:30 91 H 32 H 03/25/23 08:15 87 25 H 03/25/23 08:00 88 29 H 81 L 03/25/23 07:55 87 36 H 93 L 03/25/23 07:55 99 F 92 H 19 129/85 95 Nasal Cannula ROR Labs Reviewed 03/27/23 05:43 03/27/23 05:43 Laboratory: 03/25/23 09:22 Blood Blood Culture - Preliminary 03/25/23 09:07 Blood Blood Culture - Preliminary WBC 11.9 X10^3/uL (3.6-10.0) H 03/25/23 09:22 RBC 4.93 X10^6/uL (4.7-6.0) 03/25/23 09:22 Hgb 17.3 g/dL (13.5-18.0) 03/25/23 09:22 Hct 52.6 % (42.0-54.0) 03/25/23 09:22 MCV 106.6 fL (80.0-100.0) H 03/25/23 09:22 MCH 35.0 pg (27.0-34.0) H 03/25/23 09:22 MCHC 32.8 g/dL (33.0-35.0) L 03/25/23 09:22 RDW 18.2 % (11.6-16.5) H 03/25/23 09:22 Plt Count 195 X10^3/uL (150.0-450.0) 03/25/23 09:22 Plt Count Comment Adequate (ADEQUATE) 03/25/23 09:22 MPV 8.6 fL (7.4-11.0) 03/25/23 09:22 Neut % (Auto) 80.2 % (42.0-75.0) H 03/25/23 09:22 Lymph % (Auto) 10.1 % (21.0-51.0) L 03/25/23 09:22 [place] % (Auto) 7.2 % (0.0-13.0) 03/25/23 09:22 Eos % (Auto) 1.2 % (0.9-2.9) 03/25/23 09:22 Baso % (Auto) 1.3 % (0.2-1.0) H 03/25/23 09:22 Neut # (Auto) 9.6 x10^3/uL (2.2-4.8) H 03/25/23 09:22 Lymph # (Auto) 1.2 X10^3/uL (1.3-2.9) L 03/25/23 09:22 [place] # (Auto) 0.9 x10^3/uL (0.3-0.8) H 03/25/23 09:22 Eos # (Auto) 0.1 x10^3/uL (0.0-0.2) 03/25/23 09:22 Baso # (Auto) 0.2 X10^3/uL (0.0-0.1) H 03/25/23 09:22 Absolute Nucleated RBC 0.1 /100WBC 03/25/23 09:22 Plt Morphology Comment Normal (NORMAL) 03/25/23 09:22 RBC Morphology Abnormal (NORMAL) 03/25/23 09:22 Anisocytosis Slight A 03/25/23 09: Macrocytosis 1+ A 03/25/23 09:22 Sample Site Rrad 03/25/23 10:15 ABG pH 7.410 (7.35-7.45) 03/25/23 10:15 ABG pCO2 66.0 mmHg (35.0-45.0) H* 03/25/23 10:15 ABG pO2 58.0 mmHg (80.0-100.0) L 03/25/23 10:15 ABG HCO3 41.8 mmol/L (22-26) H* 03/25/23 10:15 ABG O2 Saturation 90.0 % (90-100) 03/25/23 10:15 ABG Base Excess 14.3 mmol/L (-2.0-2.0) H 03/25/23 10:15 Adan Test Pos 03/25/23 10:15 A-a Gradient 116.0 mmHg 03/25/23 10:15 FiO2 36.0 03/25/23 10:15 Blood Gas Comments Pt bladimir well. kg 03/25/23 10:15 Sodium 139 mmol/L (136-145) 03/25/23 09:22 Corrected Sodium TNP 03/25/23 09:22 Potassium 4.1 mmol/L (3.5-5.1) 03/25/23 09:22 Chloride 100 mmol/L (98-107) 03/25/23 09:22 Carbon Dioxide 34.6 mmol/L (21-32) H 03/25/23 09:22 BUN 26 mg/dL (7-18) H 03/25/23 09:22 Creatinine 1.43 mg/dL (0.70-1.30) H 03/25/23 09:22 Est GFR (MDRD) Af Amer > 60 (>60) 03/25/23 09:22 Est GFR (MDRD) Non-Af 55 (>60) L 03/25/23 09:22 Glucose 95 mg/dL (65-99) 03/25/23 09:22 Lactic Acid 0.9 mmol/L (0.4-2.0) 03/25/23 09:22 Calcium 9.0 mg/dL (8.5-10.1) 03/25/23 09:22 Corrected Calcium 9.6 mg/dL (8.5-10.1) 03/25/23 09:22 Total Bilirubin 0.80 mg/dL (0.2-1.0) 03/25/23 09:22 AST 12 Units/L (15-37) L 03/25/23 09:22 ALT < 6 Units/L (12-78) L 03/25/23 09:22 Alkaline Phosphatase 97 Units/L (46-116) 03/25/23 09:22 Creatine Kinase 75 Units/L (39-308) 03/25/23 09:22 Troponin I High Sens 7.2 ng/L (4.0-60.0) 03/25/23 09:22 B-Natriuretic Peptide 74.7 pg/mL (0-79) 03/25/23 09:22 Total Protein 7.7 g/dL (6.4-8.2) 03/25/23 09:22 Albumin 3.2 g/dL (3.4-5.0) L 03/25/23 09:22 Globulin 4.5 g/dL (2.5-4.5) 03/25/23 09:22 Albumin/Globulin Ratio 0.7 Ratio (1.1-2.1) L 03/25/23 09:22 Specimen Type Catherized urine 03/25/23:25 Urine Color Yellow (YELLOW) 03/25/23 09:25 Urine Appearance Clear (CLEAR) 03/25/23 09:25 Urine pH 6.0 (5.0 - 8.0) 03/25/23 09:25 Ur Specific [place] 1.020 (1.000-1.030) 03/25/23 09:25 Urine Protein 2+ (NEGATIVE) 03/25/23 09:25 Urine Glucose (UA) Negative (NEGATIVE) 03/25/23 09:25 Urine Ketones Negative (NEGATIVE) 03/25/23 09:25 Urine Blood Negative (NEGATIVE) 03/25/23 09:25 Urine Nitrite Negative (NEGATIVE) 03/25/23 09:25 Urine Bilirubin Negative (NEGATIVE) 03/25/23 09:25 Urine Urobilinogen Normal (NORMAL) 03/25/23 09:25 Ur Leukocyte Esterase Negative (NEGATIVE) 03/25/23 09:25 Urine RBC None seen /HPF (0-3) 03/25/23 09:25 Urine WBC None seen /HPF (0-5) 03/25/23 09:25 Ur Squamous Epith Cells Rare /HPF (NEGATIVE) 03/25/23 09:25 Urine Bacteria Negative /HPF (NEGATIVE) 03/25/23 09:25 Urine Mucus Rare /HPF (NEGATIVE) 03/25/23 09:25 Ur Culture Indicated? No/not indicated 03/25/23 09:25 SARS-CoV-2 (PCR) Negative (NEGATIVE) 03/25/23 09:25 Influenza Type A (PCR) Negative (NEGATIVE) 03/25/23 09:25 Influenza Type B (PCR) Negative (NEGATIVE) 03/25/23 09:25 RSV (PCR) Negative (NEGATIVE) 03/25/23 09:25 Opioid Opioid Risk Tool Age (Jeremías box if 16-45): No History of Preadolescent Sexual Abuse: No Total: 0 Total Score Risk Category: Low Risk Copyright: Dipesh SMITH predicting aberrant behaviors Discharge Plan Diagnosis Discharge Problem: CHF (congestive heart failure), Pulmonary edema, Altered mental status Discharge Plan Patient Disposition: ADMITTED INPATIENT Condition: Stable Orders to Discharge Patient Discharge Orders: Discharge (Routine); Ordered 03/27/23 Ordered By: ZULEMA JUÁREZ
--- NOTE | 2023-03-25 09:08 | CT ---
EXAM:BRAIN W/O CONHISTORY:AMS; CHF COPDCOMPARISON:NoneTECHNIQUE:Multiple CT axial images of the brain were obtained without IV contrast. Coronal and sagittal images were reconstructed. Dose reduction techniques included Automated Exposure Control (AEC) and adjustment of mA and kV.FINDINGS:[place] and white matter have normal differentiation. There is no mass, shift, or hemorrhage. Cerebellar tonsils are at an appropriate level. No fluid in the sinuses or mucosal thickening to suggest sinusitis. There is no mastoid effusion.IMPRESSION:1. No acute findingTHIS IS AN ELECTRONICALLY VERIFIED FINAL REPORT03/25/2023 9:05 AM - Electronically signed by Michael Thompson MD
--- NOTE | 2023-03-25 09:25 | EKG ---
Test Reason : SOB Blood Pressure : */* mmHG Vent. Rate : 85 BPM Atrial Rate : 85 BPM P-R Int : 168 ms QRS Dur : 86 ms QT Int : 346 ms P-R-T Axes : 56 113 52 degrees QTc Int : 411 ms Normal sinus rhythm Right axis deviation Abnormal ECG When compared with ECG of 05-FEB-2023 08:51, No significant change was found horrible baseline artifact Confirmed by Rocco Nuno MD ([id number]) on 03/25/2023 12:15:38 PM Referred By: Confirmed By: Rocco Nuno MD
--- NOTE | 2023-03-25 09:44 | RAD ---
EXAM: CHEST, 1 VIEW HISTORY: SOB; COPD, CHF COMPARISON: Prior study or studies were utilized for comparison during interpretation with the most relevant alvarez ed 02/06/2023 TECHNIQUE: CHEST, 1 VIEW FINDINGS: Chest: Lines and tubes: None Mediastinum: Cardiomegaly. Pulmonary vessels: There is pulmonary vascular congestion. Lung padgett: Patchy opacities are seen Pleura: No effusion. No pneumothorax. Bones and soft tissues: No acute osseous or soft tissue abnormality. IMPRESSION: 1. Heart failure with pulmonary edema THIS IS AN ELECTRONICALLY VERIFIED FINAL REPORT 03/25/2023 9:41 AM - Electronically signed by Ezio Combs MD
[2023-03-25 09:48] LABS: ALANINE AMINOTRANSFERASE < 6 Units/L (12-78); ALBUMIN 3.2 g/dL (3.4-5.0); ALKALINE PHOSPHATASE 97 Units/L (46-116); ASPARTATE AMINO TRANSFERASE 12 Units/L (15-37); BLOOD UREA NITROGEN 26 mg/dL (7-18); CARBON DIOXIDE 34.6 mmol/L (21-32); CHLORIDE 100 mmol/L (98-107); COR CA(FOR HYPOALB) 9.6 mg/dL (8.5-10.1); CREATINE KINASE 75 Units/L (39-308); CREATININE 1.43 mg/dL (0.70-1.30); GLUCOSE 95 mg/dL (65-99); POTASSIUM 4.1 mmol/L (3.5-5.1); SODIUM 139 mmol/L (136-145); TOTAL PROTEIN 7.7 g/dL (6.4-8.2); eGFR NON BLACK RACES 55 (>60)
[2023-03-25 09:49] LABS: BASOPHILS # (AUTO) 0.2 X10^3/uL (0.0-0.1); BASOPHILS % (AUTO) 1.3 % (0.2-1.0); EOSINOPHILS # (AUTO) 0.1 x10^3/uL (0.0-0.2); EOSINOPHILS % (AUTO) 1.2 % (0.9-2.9); HEMATOCRIT 52.6 % (42.0-54.0); HEMOGLOBIN 17.3 g/dL (13.5-18.0); LYMPHOCYTES # (AUTO) 1.2 X10^3/uL (1.3-2.9); LYMPHOCYTES % (AUTO) 10.1 % (21.0-51.0); MEAN CORPUSCULAR HGB CONC 32.8 g/dL (33.0-35.0); MEAN CORPUSCULAR VOLUME 106.6 fL (80.0-100.0); MEAN PLATELET VOLUME 8.6 fL (7.4-11.0); MONOCYTES # (AUTO) 0.9 x10^3/uL (0.3-0.8); MONOCYTES % (AUTO) 7.2 % (0.0-13.0); NEUTROPHILS # (AUTO) 9.6 x10^3/uL (2.2-4.8); NEUTROPHILS % (AUTO) 80.2 % (42.0-75.0); PLATELET COUNT 195 X10^3/uL (150.0-450.0); RED BLOOD COUNT 4.93 X10^6/uL (4.7-6.0); RED CELL DISTRIBUTION WIDTH 18.2 % (11.6-16.5); WHITE BLOOD COUNT 11.9 X10^3/uL (3.6-10.0)
[2023-03-25 09:58] LABS: ANISOCYTOSIS SLIGHT; PLATELET MORPHOLOGY COMMENT NORMAL (NORMAL)
[2023-03-25] MEDS ORDERED: LASIX IVP ONE (10:03)
[2023-03-25 10:04] LABS: BILIRUBIN,URINE NEGATIVE (NEGATIVE); BLOOD/HEMOGLOBIN,URINE NEGATIVE (NEGATIVE); GLUCOSE, URINE NEGATIVE (NEGATIVE); KETONES,URINE NEGATIVE (NEGATIVE); LEUKOCYTE ESTERASE ,URINE NEGATIVE (NEGATIVE); NITRITES,URINE NEGATIVE (NEGATIVE); PROTEIN,URINE 2+ (NEGATIVE); UROBILINOGEN,URINE NORMAL (NORMAL)
[2023-03-25] MEDS: LASIX IVP ONE (10:06)
[2023-03-25 10:13] LABS: APPEARANCE,URINE CLEAR (CLEAR); COLOR,URINE YELLOW (YELLOW)
[2023-03-25 10:19] LABS: BACTERIA,URINE NEGATIVE /HPF (NEGATIVE); RBC,URINE NONE SEEN /HPF (0-3); SQUAMOUS EPITHELIAL CELL,UR RARE /HPF (NEGATIVE)
[2023-03-25 10:20] LABS: ABG BASE EXCESS 14.3 mmol/L (-2.0-2.0)
[2023-03-25 10:21] LABS: ABG ALLEN TEST POS; ABG HCO3 41.8 mmol/L (22-26)
[2023-03-25 16:26] VITALS: BMI 45.3
[2023-03-25] MEDS ORDERED: BUTT CREAM (COMPOUND) TOP PRN (22:58)
[2023-03-26 05:00] LABS: BASOPHILS # (AUTO) 0.1 X10^3/uL (0.0-0.1); BASOPHILS % (AUTO) 0.9 % (0.2-1.0); EOSINOPHILS % (AUTO) 0.4 % (0.9-2.9); HEMATOCRIT 49.9 % (42.0-54.0); HEMOGLOBIN 16.7 g/dL (13.5-18.0); LYMPHOCYTES # (AUTO) 0.6 X10^3/uL (1.3-2.9); LYMPHOCYTES % (AUTO) 6.3 % (21.0-51.0); MEAN CORPUSCULAR HEMOGLOBIN 35.3 pg (27.0-34.0); MEAN CORPUSCULAR HGB CONC 33.5 g/dL (33.0-35.0); MEAN CORPUSCULAR VOLUME 105.6 fL (80.0-100.0); MEAN PLATELET VOLUME 8.2 fL (7.4-11.0); MONOCYTES # (AUTO) 0.7 x10^3/uL (0.3-0.8); MONOCYTES % (AUTO) 7.3 % (0.0-13.0); NEUTROPHILS # (AUTO) 8.7 x10^3/uL (2.2-4.8); NEUTROPHILS % (AUTO) 85.1 % (42.0-75.0); PLATELET COUNT 203 X10^3/uL (150.0-450.0); RED BLOOD COUNT 4.73 X10^6/uL (4.7-6.0); WHITE BLOOD COUNT 10.3 X10^3/uL (3.6-10.0)
[2023-03-26 05:18] LABS: ALANINE AMINOTRANSFERASE 7 Units/L (12-78); ALBUMIN 2.8 g/dL (3.4-5.0); ALKALINE PHOSPHATASE 82 Units/L (46-116); ASPARTATE AMINO TRANSFERASE 14 Units/L (15-37); BLOOD UREA NITROGEN 17 mg/dL (7-18); CALCIUM 8.9 mg/dL (8.5-10.1); CARBON DIOXIDE 38.3 mmol/L (21-32); CHLORIDE 99 mmol/L (98-107); COR CA(FOR HYPOALB) 9.9 mg/dL (8.5-10.1); GLUCOSE 101 mg/dL (65-99); POTASSIUM 3.9 mmol/L (3.5-5.1); SODIUM 142 mmol/L (136-145); TOTAL PROTEIN 7.3 g/dL (6.4-8.2); eGFR NON BLACK RACES > 60 (>60)
[2023-03-26 05:33] LABS: ANISOCYTOSIS SLIGHT; PLATELET MORPHOLOGY COMMENT NORMAL (NORMAL)
[2023-03-26] MEDS ORDERED: ULTRAM PO PRN (09:05)
[2023-03-26] MEDS ORDERED: GLUCOPHAGE PO SCH (10:00)
[2023-03-26] MEDS: NEURONTIN CAP 300 MG PO SCH (10:18)
[2023-03-26] MEDS: GLUCOPHAGE XR 24-HR PO SCH (10:19)
[2023-03-26] MEDS: ALTACE 2.5 MG CAP PO SCH (10:19)
[2023-03-26] MEDS: LOVENOX INJ 40 MG SYR SC SCH (10:23)
[2023-03-26] MEDS: COREG TAB 3.125 MG PO SCH (20:17)
[2023-03-26] MEDS: THIAMINE HCL INJ IVP SCH (21:36)
[2023-03-27] MEDS: NORCO 7.5/325 MG TAB PO PRN (05:37)
[2023-03-27 06:34] LABS: BASOPHILS # (AUTO) 0.1 X10^3/uL (0.0-0.1); BASOPHILS % (AUTO) 0.5 % (0.2-1.0); EOSINOPHILS # (AUTO) 0.1 x10^3/uL (0.0-0.2); EOSINOPHILS % (AUTO) 0.7 % (0.9-2.9); HEMATOCRIT 47.7 % (42.0-54.0); HEMOGLOBIN 15.8 g/dL (13.5-18.0); LYMPHOCYTES # (AUTO) 0.9 X10^3/uL (1.3-2.9); LYMPHOCYTES % (AUTO) 7.9 % (21.0-51.0); MEAN CORPUSCULAR HEMOGLOBIN 35.1 pg (27.0-34.0); MEAN CORPUSCULAR VOLUME 106.1 fL (80.0-100.0); MEAN PLATELET VOLUME 8.3 fL (7.4-11.0); MONOCYTES # (AUTO) 0.8 x10^3/uL (0.3-0.8); MONOCYTES % (AUTO) 7.1 % (0.0-13.0); NEUTROPHILS # (AUTO) 9.7 x10^3/uL (2.2-4.8); NEUTROPHILS % (AUTO) 83.8 % (42.0-75.0); PLATELET COUNT 221 X10^3/uL (150.0-450.0); RED BLOOD COUNT 4.49 X10^6/uL (4.7-6.0); RED CELL DISTRIBUTION WIDTH 17.9 % (11.6-16.5); WHITE BLOOD COUNT 11.6 X10^3/uL (3.6-10.0)
[2023-03-27 06:42] LABS: ALANINE AMINOTRANSFERASE 10 Units/L (12-78); ALBUMIN 2.8 g/dL (3.4-5.0); ALKALINE PHOSPHATASE 75 Units/L (46-116); ASPARTATE AMINO TRANSFERASE 12 Units/L (15-37); BLOOD UREA NITROGEN 14 mg/dL (7-18); CARBON DIOXIDE 36.4 mmol/L (21-32); CHLORIDE 100 mmol/L (98-107); CREATININE 0.89 mg/dL (0.70-1.30); GLUCOSE 94 mg/dL (65-99); MAGNESIUM 1.8 mg/dL (2.0-2.9); SODIUM 139 mmol/L (136-145); TOTAL PROTEIN 7.5 g/dL (6.4-8.2); eGFR NON BLACK RACES > 60 (>60)
[2023-03-27 07:07] LABS: ANISOCYTOSIS SLIGHT; PLATELET MORPHOLOGY COMMENT NORMAL (NORMAL)
[2023-03-27] MEDS ORDERED: CONSULT PHARMACY - POTASSIUM & MAGNESIUM XX SCH (08:00)
[2023-03-27] MEDS: VITAMIN B-12 INJ IM ONE (10:33)
[2023-03-27] MEDS: FOLIC ACID TAB 1 MG PO SCH (10:33)
[2023-03-27] MEDS: MAG-OX TAB PO SCH (10:34)
[2023-03-27 12:20] VITALS: RESP 20
[2023-03-27 16:49] VITALS: BP 150/82; PULSE 84; TEMP 98.4; O2SAT 84
== END 2023-03-27 17:35 | disposition home or self-care (01) ==
LOC: MED/SURG 07:37 → ER 07:37 → MED/SURG 14:20
PROVIDERS: ADMIT Obstetrics & Gynecology Obstetrics; ATTEND Obstetrics & Gynecology Obstetrics
DX: Z20.822 Contact with and (suspected) exposure to COVID-19; E11.9 Type 2 diabetes mellitus without complications; I50.9 Heart failure, unspecified; Z68.41 Body mass index [BMI] 40.0-44.9, adult; R53.1 Weakness; R06.02 Shortness of breath; R41.82 Altered mental status, unspecified; I11.0 Hypertensive heart disease with heart failure; R09.02 Hypoxemia; E66.2 Morbid (severe) obesity with alveolar hypoventilation

== ENCOUNTER 2023-09-24 09:23 | Observation (INO) ==
[2023-09-24 09:37] VITALS: BMI 43.9
[2023-09-24 09:40] LABS: ABG BASE EXCESS 13.8 mmol/L (-2.0-2.0)
[2023-09-24 09:41] LABS: ABG ALLEN TEST POS; ABG PO2 < 37.0 mmHg (80.0-100.0)
--- NOTE | 2023-09-24 09:46 | DR.SOBA ---
HPI Time Seen Time Seen by Provider: 09/24/23 09:40 Primary Care Physician Primary Care Physician: Dr. Rich Complaints Chief Complaint Doctors Comments: 52-year-old male presents for evaluation. With a history of COPD, CHF. Has been having worsening breathing of the past several days. Has a cough, productive of some castillo sputum. Denies any fever, but is having chills. Has swelling of his lower extremities, right greater than left. States he is compliant with medications. Patient has stopped smoking. No bowel or bladder issues. Chief Complaint:: Pt was admitted to [facility] on 09/15/23 for COPD exacerbation and discharged home on 09/17/23. Since going home pt c/o progressively worsening shortness of breath despite increasing home oxygen from 2L/min via NC to 5L/min via NC. Pt does c/o swelling in his lower extremities but denies any other complaints. Self Treatment fo Chief Complaint: Pt again presents to ED today without oxygen intact and states, "I still dont have a portable tank." COVID-19 Coronavirus risk:travel/contact w/high risk person: No Has patient experienced Coronavirus symptoms: No Reviewed Nurses Notes Reviewed: Yes Source History Provided: Patient Mode of Arrival Mode of Arrival: Ambulatory Timing Onset of Chief Complaint: 09/17/23 PMH PMH Past Medical History: Yes Past Medical History: CHF, COPD, Diabetes, Dyslipidemia and Hypertension Past Surgical History: No Surgical History: No History Family History History of Family Medical Conditions: Yes Family Medical History: Cancer, MD and Coronary Artery Disease Social History Does patient currently use any type of tobacco product: Yes Have you used tobacco products in the last 12 months: Yes Type of Tobacco Use: Cigarettes Does any household member use tobacco: No Alcohol Use: None Do you use any recreational Drugs:: No Lives With: Spouse Lives Where: Home Travel Risk Coronavirus risk:travel/contact w/high risk person: No Has patient experienced Coronavirus symptoms: No Infectious screening In the last 2 months have you had wt loss of >10#?: NO Have you had fever, night sweats or hemotysis?: No Have you traveled outside the country in the last 6 months?: No Isolation: Standard ROS Review of Systems Constitutional: Chills and Weakness Eyes: No Symptoms Reported ENTM: No Symptoms Reported Respiratoy: Productive Cough and Short of Breath Cardiovascular: No Symptoms Reported Gastrointestinal/Abdominal: No Symptoms Reported Genitourinary: No Symptoms Reported Neurological: No Symptoms Reported Musculoskeletal: No Symptoms Reported Integumentary: No Symptoms Reported Hematologic/Lymphatic: No Symptoms Reported All Other Systems: Reviewed and Negative PE Vital Signs Vitals: Vital Signs Temperature 98.0 F Pulse Rate 57 Pulse Rate 57 Pulse Rate 57 Pulse Rate 62 Pulse Rate 53 Pulse Rate 58 Pulse Rate 64 Pulse Rate 52 Pulse Rate 51 Pulse Rate 67 Pulse Rate 47 Pulse Rate 50 Pulse Rate 51 Pulse Rate 50 Pulse Rate 51 Pulse Rate 46 Pulse Rate 46 Pulse Rate 61 Pulse Rate 58 Pulse Rate 50 Pulse Rate 54 Pulse Rate 65 Pulse Rate 69 Pulse Rate 69 Pulse Rate 69 Respiratory Rate 14 Respiratory Rate 19 Respiratory Rate 17 Respiratory Rate 16 Respiratory Rate 11 Respiratory Rate 26 Respiratory Rate 14 Respiratory Rate 19 Respiratory Rate 32 Respiratory Rate 26 Respiratory Rate 19 Respiratory Rate 23 Respiratory Rate 39 Respiratory Rate 24 Respiratory Rate 19 Respiratory Rate 18 Respiratory Rate 20 Respiratory Rate 34 Respiratory Rate 18 Respiratory Rate 14 Respiratory Rate 24 Blood Pressure 120/58 Blood Pressure 126/63 Blood Pressure 130/66 Blood Pressure 119/61 Blood Pressure 134/61 Blood Pressure 131/80 Blood Pressure 138/77 Blood Pressure 123/66 Blood Pressure 147/71 Blood Pressure 132/72 Blood Pressure 129/71 Blood Pressure 129/71 Blood Pressure 122/71 O2 Sat by Pulse Oximetry 100 O2 Sat by Pulse Oximetry 95 O2 Sat by Pulse Oximetry 98 O2 Sat by Pulse Oximetry 97 O2 Sat by Pulse Oximetry 100 O2 Sat by Pulse Oximetry 98 O2 Sat by Pulse Oximetry 99 O2 Sat by Pulse Oximetry 100 O2 Sat by Pulse Oximetry 97 O2 Sat by Pulse Oximetry 100 O2 Sat by Pulse Oximetry 100 O2 Sat by Pulse Oximetry 99 O2 Sat by Pulse Oximetry 96 O2 Sat by Pulse Oximetry 95 O2 Sat by Pulse Oximetry 96 O2 Sat by Pulse Oximetry 98 O2 Sat by Pulse Oximetry 82 O2 Sat by Pulse Oximetry 78 O2 Sat by Pulse Oximetry 78 O2 Sat by Pulse Oximetry 53 General General Appearance: Alert and In No Apparent Distress Eyes Eye exam: PERRL and EOMI ENT ENT Exam: Normal Exam Neck Neck Exam: Normal Inspection Respiratory Respiratory Exam: Other (Decreased breath sounds at the bases, no active wheezing, rales) Cardiovascular Cardiovascular Exam: Regular Rate, Normal Rhythm and Normal Heart Sounds Extremities Extremities Exam: Edema (2-3+, lower extremities) Neurologic Neurological Exam: Alert, Oriented X3 and CN II-XII Intact; negative Motor Sensory Deficit Skin Skin Exam: Warm and Dry COURSE Treatment Treatment: 82-year-old male, history of COPD, presents for evaluation. Patient traveled from [place], without O2, pulse ox on arrival around 60%. Has O2 at home, but does not have a portable tank. Patient placed on 2 L ABG performed shows elevated pCO2 at 71, pO2 less than 37. Pulse ox 54% on 2 L. Initiated. Patient changed to BiPAP. 1402 -patient has been resting, good pulse ox on BiPAP. White count little elevated 13,600, chemistry is acceptable except for the elevated bicarb. BNP is a bit elevated 143. Chest x-ray obtained, has cardiomegaly and degree of central pulmonary vascular congestion. Troponin was negative. Negative COVID. Patient was given DuoNeb treatment, IV Decadron, IV Rocephin for prophylactic coverage. Discussed with his attending, Dr. Rich, will admit for exacerbation of COPD, mild CHF.. ROR Labs Reviewed Laboratory Results Reviewed?: Yes 09/24/23 09:40 09/24/23 09:40 Laboratory: WBC 13.6 X10^3/uL (3.6-10.0) H 09/24/23 09:40 RBC 4.07 X10^6/uL (4.7-6.0) L 09/24/23 09:40 Hgb 13.5 g/dL (13.5-18.0) 09/24/23 09:40 Hct 42.3 % (42.0-54.0) 09/24/23 09:40 MCV 104.1 fL (80.0-100.0) H 09/24/23 09:40 MCH 33.2 pg (27.0-34.0) 09/24/23 09:40 MCHC 31.9 g/dL (33.0-35.0) L 09/24/23 09:40 RDW 16.6 % (11.6-16.5) H 09/24/23 09:40 Plt Count 199 X10^3/uL (150.0-450.0) 09/24/23 09:40 MPV 8.3 fL (7.4-11.0) 09/24/23 09:40 Neut % (Auto) 79.7 % (42.0-75.0) H 09/24/23 09:40 Lymph % (Auto) 11.2 % (21.0-51.0) L 09/24/23 09:40 [place] % (Auto) 6.7 % (0.0-13.0) 09/24/23 09:40 Eos % (Auto) 1.9 % (0.9-2.9) 09/24/23 09:40 Baso % (Auto) 0.5 % (0.2-1.0) 09/24/23 09:40 Neut # (Auto) 10.8 x10^3/uL (2.2-4.8) H 09/24/23 09:40 Lymph # (Auto) 1.5 X10^3/uL (1.3-2.9) 09/24/23 09:40 [place] # (Auto) 0.9 x10^3/uL (0.3-0.8) H 09/24/23 09:40 Eos # (Auto) 0.3 x10^3/uL (0.0-0.2) H 09/24/23 09:40 Baso # (Auto) 0.1 X10^3/uL (0.0-0.1) 09/24/23 09:40 Absolute Nucleated RBC 0.2 /100WBC 09/24/23 09:40 Sample Site Rra 09/24/23 09:35 ABG pH 7.380 (7.35-7.45) 09/24/23 09:35 ABG pCO2 71.0 mmHg (35.0-45.0) H* 09/24/23 09:35 ABG pO2 < 37.0 mmHg (80.0-100.0) L* 09/24/23 09:35 ABG HCO3 42.0 mmol/L (22-26) H* 09/24/23 09:35 ABG O2 Saturation 64.0 % (90-100) L* 09/24/23 09:35 ABG Base Excess 13.8 mmol/L (-2.0-2.0) H 09/24/23 09:35 Adan Test Pos 09/24/23 09:35 A-a Gradient 77.0 mmHg 09/24/23 09:35 FiO2 28.0 09/24/23 09:35 Blood Gas Comments Pt bladimir well eb/kg 09/24/23 09:35 Sodium 142 mmol/L (136-145) 09/24/23 09:40 Corrected Sodium TNP 09/24/23 09:40 Potassium 3.8 mmol/L (3.5-5.1) 09/24/23 09:40 Chloride 103 mmol/L (98-107) 09/24/23 09:40 Carbon Dioxide 38.8 mmol/L (21-32) H 09/24/23 09:40 BUN 10 mg/dL (7-18) 09/24/23 09:40 Creatinine 1.24 mg/dL (0.70-1.30) 09/24/23 09:40 Est GFR (MDRD) Af Amer > 60 (>60) 09/24/23 09:40 Est GFR (MDRD) Non-Af > 60 (>60) 09/24/23 09:40 Glucose 92 mg/dL (65-99) 09/24/23 09:40 Lactic Acid 1.2 mmol/L (0.4-2.0) 09/24/23 09:57 Calcium 8.0 mg/dL (8.5-10.1) L 09/24/23 09:40 Corrected Calcium 8.9 mg/dL (8.5-10.1) 09/24/23 09:40 Magnesium 1.5 mg/dL (2.0-2.9) L 09/24/23 09:40 Total Bilirubin 0.70 mg/dL (0.2-1.0) 09/24/23 09:40 AST 18 Units/L (15-37) 09/24/23 09:40 ALT 11 Units/L (12-78) L 09/24/23 09:40 Alkaline Phosphatase 104 Units/L (46-116) 09/24/23 09:40 Creatine Kinase 54 Units/L (39-308) 09/24/23 09:40 Troponin I High Sens 11.8 ng/L (4.0-60.0) 09/24/23 09:40 B-Natriuretic Peptide 143 pg/mL (0-79) H 09/24/23 09:40 Total Protein 6.6 g/dL (6.4-8.2) 09/24/23 09:40 Albumin 2.9 g/dL (3.4-5.0) L 09/24/23 09:40 Globulin 3.7 g/dL (2.5-4.5) 09/24/23 09:40 Albumin/Globulin Ratio 0.8 Ratio (1.1-2.1) L 09/24/23 09:40 Specimen Type Clean catch urine 09/24/23 09:46 Urine Color Straw (YELLOW) 09/24/23 09:46 Urine Appearance Clear (CLEAR) 09/24/23 09:46 Urine pH 6.0 (5.0 - 8.0) 09/24/23 09:46 Ur Specific [place] 1.010 (1.000-1.030) 09/24/23 09:46 Urine Protein Negative (NEGATIVE) 09/24/23 09:46 Urine Glucose (UA) 2+ (NEGATIVE) 09/24/23 09:46 Urine Ketones Negative (NEGATIVE) 09/24/23 09:46 Urine Blood Negative (NEGATIVE) 09/24/23 09:46 Urine Nitrite Negative (NEGATIVE) 09/24/23 09:46 Urine Bilirubin Negative (NEGATIVE) 09/24/23 09:46 Urine Urobilinogen Normal (NORMAL) 09/24/23 09:46 Ur Leukocyte Esterase Negative (NEGATIVE) 09/24/23 09:46 SARS CoV-2 RNA Rapid PAMELA Negative (NEGATIVE) 09/24/23 09:45 XRAY XRAY Interpreted by: Radiologist X-ray Results: EXAM: CHEST, 1 VIEW HISTORY: SOB; COMPARISON: September 14 TECHNIQUE: Chest x-ray single view performed FINDINGS: Redemonstration of cardiomegaly with worsening central vascular congestion and developing interstitial opacities favoring pulmonary edema. Marginal blunting of the left costophrenic sulcus for which small effusion is considered. No densely organized consolidation. Pulmonary artery shadows appear prominent bilaterally. This may indicate the presence of pulmonary artery hypertension. No radiographic evidence of pneumothorax or free air beneath the diaphragm. No acute osseous abnormalities. IMPRESSION: Cardiomegaly with developing central vascular congestion and interstitial edema plus or minus small left-sided pleural effusion Enlarged main pulmonary arteries may be an indicator of pulmonary artery hypertension THIS IS AN ELECTRONICALLY VERIFIED FINAL REPORT 09/24/2023 11:18 AM - Electronically signed by Charan Gr MD EKG Rate: 51 [place]: Normal Rhythm: SB ST: Normal Opioid Opioid Risk Tool Age (Jeremías box if 16-45): No History of Preadolescent Sexual Abuse: No Total: 0 Total Score Risk Category: Low Risk Copyright: Dipesh SMITH predicting aberrant behaviors Discharge Plan Diagnosis Discharge Problem: Acute exacerbation of chronic obstructive pulmonary disease, Mild congestive heart failure Discharge Plan Patient Disposition: 09 ADMITTED INPATIENT Condition: Stable
[2023-09-24 09:58] LABS: BASOPHILS # (AUTO) 0.1 X10^3/uL (0.0-0.1); EOSINOPHILS # (AUTO) 0.3 x10^3/uL (0.0-0.2); HEMATOCRIT 42.3 % (42.0-54.0); LYMPHOCYTES # (AUTO) 1.5 X10^3/uL (1.3-2.9); MEAN CORPUSCULAR HEMOGLOBIN 33.2 pg (27.0-34.0); NEUTROPHILS # (AUTO) 10.8 x10^3/uL (2.2-4.8)
[2023-09-24 10:02] LABS: BILIRUBIN,URINE NEGATIVE (NEGATIVE); BLOOD/HEMOGLOBIN,URINE NEGATIVE (NEGATIVE); GLUCOSE, URINE 2+ (NEGATIVE); KETONES,URINE NEGATIVE (NEGATIVE); LEUKOCYTE ESTERASE ,URINE NEGATIVE (NEGATIVE); NITRITES,URINE NEGATIVE (NEGATIVE); PROTEIN,URINE NEGATIVE (NEGATIVE); UROBILINOGEN,URINE NORMAL (NORMAL)
[2023-09-24 10:03] LABS: ALANINE AMINOTRANSFERASE 11 Units/L (12-78); ALBUMIN 2.9 g/dL (3.4-5.0); ALKALINE PHOSPHATASE 104 Units/L (46-116); ASPARTATE AMINO TRANSFERASE 18 Units/L (15-37); BASOPHILS % (AUTO) 0.5 % (0.2-1.0); BLOOD UREA NITROGEN 10 mg/dL (7-18); CARBON DIOXIDE 38.8 mmol/L (21-32); CHLORIDE 103 mmol/L (98-107); COR CA(FOR HYPOALB) 8.9 mg/dL (8.5-10.1); CREATINE KINASE 54 Units/L (39-308); CREATININE 1.24 mg/dL (0.70-1.30); EOSINOPHILS % (AUTO) 1.9 % (0.9-2.9); GLUCOSE 92 mg/dL (65-99); HEMOGLOBIN 13.5 g/dL (13.5-18.0); LYMPHOCYTES % (AUTO) 11.2 % (21.0-51.0); MAGNESIUM 1.5 mg/dL (2.0-2.9); MEAN CORPUSCULAR HGB CONC 31.9 g/dL (33.0-35.0); MEAN CORPUSCULAR VOLUME 104.1 fL (80.0-100.0); MEAN PLATELET VOLUME 8.3 fL (7.4-11.0); MONOCYTES # (AUTO) 0.9 x10^3/uL (0.3-0.8); MONOCYTES % (AUTO) 6.7 % (0.0-13.0); NEUTROPHILS % (AUTO) 79.7 % (42.0-75.0); PLATELET COUNT 199 X10^3/uL (150.0-450.0); POTASSIUM 3.8 mmol/L (3.5-5.1); RED BLOOD COUNT 4.07 X10^6/uL (4.7-6.0); RED CELL DISTRIBUTION WIDTH 16.6 % (11.6-16.5); SODIUM 142 mmol/L (136-145); TOTAL PROTEIN 6.6 g/dL (6.4-8.2); WHITE BLOOD COUNT 13.6 X10^3/uL (3.6-10.0); eGFR NON BLACK RACES > 60 (>60)
[2023-09-24 10:04] LABS: APPEARANCE,URINE CLEAR (CLEAR); COLOR,URINE STRAW (YELLOW)
--- NOTE | 2023-09-24 10:14 | EKG ---
Test Reason : short of breath Blood Pressure : */* mmHG Vent. Rate : 51 BPM Atrial Rate : 51 BPM P-R Int : 172 ms QRS Dur : 96 ms QT Int : 432 ms P-R-T Axes : 72 86 54 degrees QTc Int : 398 ms Sinus bradycardia Otherwise normal ECG When compared with ECG of 15-SEP-2023 14:37, Vent. rate has decreased BY 34 BPM QT has shortened Confirmed by Lion Madrid ([id number]) on 09/28/2023 7:13:09 AM Referred By: Confirmed By: Lion Madrid
--- NOTE | 2023-09-24 11:21 | RAD ---
EXAM:CHEST, 1 VIEWHISTORY:SOB;COMPARISON:September 14TECHNIQUE:Chest x-ray single view performedFINDINGS:Redemonstration of cardiomegaly with worsening central vascular congestion and developing interstitial opacities favoring pulmonary edema. Marginal blunting of the left costophrenic sulcus for which small effusion is considered. No densely organized consolidation. Pulmonary artery shadows appear prominent bilaterally. This may indicate the presence of pulmonary artery hypertension. No radiographic evidence of pneumothorax or free air beneath the diaphragm. No acute osseous abnormalities.IMPRESSION:Cardiomegaly with developing central vascular congestion and interstitial edema plus or minus small left-sided pleural effusionEnlarged main pulmonary arteries may be an indicator of pulmonary artery hypertensionTHIS IS AN ELECTRONICALLY VERIFIED FINAL REPORT09/24/2023 11:18 AM - Electronically signed by Charan Gr MD
[2023-09-24] MEDS: DECADRON INJ IVP ONE (12:41)
[2023-09-24] MEDS: LASIX IVP ONE (12:42)
[2023-09-24] MEDS: ROCEPHIN VIAL 1 GRAM IVP ONE (12:42)
[2023-09-24] MEDS: DUONEB 0.5 MG/3 MG (3 mL) NEB ONE (12:47)
[2023-09-24] MEDS ORDERED: CONSULT PHARMACY - POTASSIUM & MAGNESIUM XX SCH (15:00)
[2023-09-24] MEDS: ROCEPHIN VIAL 1 GRAM 1 G in NS 100 ML IV 100 ML IV SCH (15:32)
[2023-09-24] MEDS ORDERED: NS 250 ML IV 250 ML IV ONE (15:37)
[2023-09-24] MEDS: NORCO 7.5/325 MG TAB PO PRN (15:46)
[2023-09-24] MEDS: MAGNESIUM SULFATE 1 GRAM/100 mL PREMIX 1 G/100 ML BAG IV SCH (15:46)
[2023-09-24] MEDS: NS 250 ML IV 250 ML IV PRN (15:56)
[2023-09-24] MEDS ORDERED: DUONEB 0.5 MG/3 MG (3 mL) NEB SCH (17:00)
[2023-09-24] MEDS: NICOTINE PATCH TD SCH (17:16)
[2023-09-24] MEDS: DUONEB 0.5 MG/3 MG (3 mL) NEB SCH (17:28)
[2023-09-24] MEDS: PULMICORT NEB TX 0.5 MG NEB SCH (20:16)
[2023-09-24] MEDS ORDERED: PULMICORT NEB TX 0.5 MG NEB SCH (21:00)
[2023-09-24] MEDS: GLUCOPHAGE XR 24-HR PO SCH (21:44)
[2023-09-24] MEDS: LIPITOR TAB 40 MG PO SCH (21:44)
[2023-09-24] MEDS: NEURONTIN CAP 300 MG PO SCH (21:44)
[2023-09-24] MEDS: ZESTRIL TAB 10 MG PO SCH (21:44)
[2023-09-24] MEDS: LOPRESSOR TAB 50 MG PO SCH (21:44)
[2023-09-24] MEDS: SOLU-Medrol 40 MG VIAL IVP SCH (21:45)
[2023-09-24] MEDS: CHECK PATCH XX SCH (21:45)
[2023-09-25 05:41] LABS: BASOPHILS # (AUTO) 0.1 X10^3/uL (0.0-0.1); BASOPHILS % (AUTO) 0.4 % (0.2-1.0); HEMATOCRIT 40.4 % (42.0-54.0); HEMOGLOBIN 12.9 g/dL (13.5-18.0); LYMPHOCYTES # (AUTO) 0.8 X10^3/uL (1.3-2.9); LYMPHOCYTES % (AUTO) 6.2 % (21.0-51.0); MEAN CORPUSCULAR HEMOGLOBIN 32.6 pg (27.0-34.0); MEAN CORPUSCULAR HGB CONC 31.8 g/dL (33.0-35.0); MEAN CORPUSCULAR VOLUME 102.5 fL (80.0-100.0); MEAN PLATELET VOLUME 8.7 fL (7.4-11.0); MONOCYTES # (AUTO) 0.3 x10^3/uL (0.3-0.8); MONOCYTES % (AUTO) 2.7 % (0.0-13.0); NEUTROPHILS # (AUTO) 11.6 x10^3/uL (2.2-4.8); NEUTROPHILS % (AUTO) 90.7 % (42.0-75.0); PLATELET COUNT 202 X10^3/uL (150.0-450.0); RED BLOOD COUNT 3.95 X10^6/uL (4.7-6.0); RED CELL DISTRIBUTION WIDTH 16.3 % (11.6-16.5); WHITE BLOOD COUNT 12.8 X10^3/uL (3.6-10.0)
[2023-09-25 05:58] LABS: ABG BASE EXCESS 12.9 mmol/L (-2.0-2.0)
[2023-09-25 05:59] LABS: ABG ALLEN TEST POS; ABG HCO3 39.4 mmol/L (22-26)
[2023-09-25 06:14] LABS: ALANINE AMINOTRANSFERASE 8 Units/L (12-78); ALBUMIN 2.9 g/dL (3.4-5.0); ALKALINE PHOSPHATASE 96 Units/L (46-116); ASPARTATE AMINO TRANSFERASE 12 Units/L (15-37); BLOOD UREA NITROGEN 16 mg/dL (7-18); CALCIUM 8.1 mg/dL (8.5-10.1); CARBON DIOXIDE 36.4 mmol/L (21-32); CHLORIDE 99 mmol/L (98-107); COR NA(FOR HYPERGLY) 140 mmol/L (136-145); CREATININE 1.53 mg/dL (0.70-1.30); GLUCOSE 132 mg/dL (65-99); MAGNESIUM 1.9 mg/dL (2.0-2.9); POTASSIUM 3.7 mmol/L (3.5-5.1); SODIUM 139 mmol/L (136-145); TOTAL PROTEIN 6.7 g/dL (6.4-8.2); eGFR NON BLACK RACES 51 (>60)
[2023-09-25 06:31] LABS: BAND NEUTROPHILS % 7 % (0-10)
[2023-09-25 06:32] LABS: PLATELET MORPHOLOGY COMMENT NORMAL (NORMAL)
[2023-09-25] MEDS: ZYLOPRIM PO SCH (08:27)
[2023-09-25] MEDS: LASIX PO SCH (08:27)
[2023-09-25] MEDS: FOLTX PO SCH (08:28)
[2023-09-25] MEDS: ARIMIDEX PO SCH (08:28)
[2023-09-25] MEDS: ASPIRIN EC 81 MG PO SCH (08:28)
[2023-09-25] MEDS: FARXIGA PO SCH (09:16)
[2023-09-25] MEDS ORDERED: PULMICORT NEB TX 0.5 MG NEB SCH (10:30)
[2023-09-25] MEDS: LASIX IVP ONE (10:54)
[2023-09-25] MEDS: AVELOX TAB 400 MG PO SCH (10:54)
[2023-09-25] MEDS ORDERED: LASIX IVP SCH (11:00)
[2023-09-25] MEDS: PULMICORT NEB TX 0.5 MG NEB ONE (19:23)
[2023-09-26 04:54] LABS: BASOPHILS # (AUTO) 0.2 X10^3/uL (0.0-0.1); EOSINOPHILS % (AUTO) 0.1 % (0.9-2.9); HEMATOCRIT 45.3 % (42.0-54.0); HEMOGLOBIN 14.4 g/dL (13.5-18.0); LYMPHOCYTES # (AUTO) 3.3 X10^3/uL (1.3-2.9); LYMPHOCYTES % (AUTO) 17.8 % (21.0-51.0); MEAN CORPUSCULAR HEMOGLOBIN 32.8 pg (27.0-34.0); MEAN CORPUSCULAR HGB CONC 31.8 g/dL (33.0-35.0); MEAN CORPUSCULAR VOLUME 103.4 fL (80.0-100.0); MEAN PLATELET VOLUME 8.6 fL (7.4-11.0); MONOCYTES # (AUTO) 1.3 x10^3/uL (0.3-0.8); MONOCYTES % (AUTO) 7.1 % (0.0-13.0); NEUTROPHILS # (AUTO) 13.7 x10^3/uL (2.2-4.8); PLATELET COUNT 239 X10^3/uL (150.0-450.0); RED BLOOD COUNT 4.38 X10^6/uL (4.7-6.0); RED CELL DISTRIBUTION WIDTH 16.2 % (11.6-16.5); WHITE BLOOD COUNT 18.5 X10^3/uL (3.6-10.0)
[2023-09-26 05:23] LABS: ALANINE AMINOTRANSFERASE 9 Units/L (12-78); ALBUMIN 3.1 g/dL (3.4-5.0); ALKALINE PHOSPHATASE 96 Units/L (46-116); ASPARTATE AMINO TRANSFERASE 12 Units/L (15-37); BLOOD UREA NITROGEN 19 mg/dL (7-18); CALCIUM 8.6 mg/dL (8.5-10.1); CARBON DIOXIDE 40.5 mmol/L (21-32); CHLORIDE 98 mmol/L (98-107); COR CA(FOR HYPOALB) 9.3 mg/dL (8.5-10.1); CREATININE 1.56 mg/dL (0.70-1.30); GLUCOSE 94 mg/dL (65-99); MAGNESIUM 1.8 mg/dL (2.0-2.9); POTASSIUM 3.5 mmol/L (3.5-5.1); SODIUM 141 mmol/L (136-145); TOTAL PROTEIN 7.3 g/dL (6.4-8.2); eGFR NON BLACK RACES 50 (>60)
[2023-09-26] MEDS ORDERED: CONSULT PHARMACY - POTASSIUM & MAGNESIUM XX SCH (07:00)
[2023-09-26] MEDS: MAG-OX TAB PO SCH (08:31)
[2023-09-26] MEDS: KLOR-CON 10 MEQ TAB PO SCH (08:32)
[2023-09-26 10:58] VITALS: BP 121/67; PULSE 69; O2SAT 94
[2023-09-26 11:46] VITALS: RESP 20
[2023-09-26 13:57] VITALS: TEMP 98.7
== END 2023-09-26 13:55 | disposition home or self-care (01) ==
LOC: ER 09:23 → ICU 09:23
PROVIDERS: ADMIT Obstetrics & Gynecology Obstetrics; ATTEND Obstetrics & Gynecology Obstetrics
DX: I11.0 Hypertensive heart disease with heart failure; Z72.0 Tobacco use; J44.1 Chronic obstructive pulmonary disease with (acute) exacerbation; R60.0 Localized edema; Z20.822 Contact with and (suspected) exposure to COVID-19; R00.1 Bradycardia, unspecified; E78.5 Hyperlipidemia, unspecified; Z99.81 Dependence on supplemental oxygen; I27.20 Pulmonary hypertension, unspecified; I50.9 Heart failure, unspecified; J96.10 Chronic respiratory failure, unspecified whether with hypoxia or hypercapnia; E11.65 Type 2 diabetes mellitus with hyperglycemia; E83.42 Hypomagnesemia

== ENCOUNTER 2024-12-28 10:08 | Observation (INO) ==
--- NOTE | 2024-12-28 10:24 | DR.DIZZY ---
HPI Time seen Time Seen by Provider: 12/28/24 10:22 Complaint Chief Complaint Doctor Comments: 54-year-old male well-known to hospital staff to ED from home via EMS stating he does not feel well patient has had multiple hospitalizationsHistory of CAD CHF COPD smokes 2 packs cigarettes a day and usually stays in a chair at home per report Context Stroke Symptoms: None PMH PMH Past Medical History: Arthritis, CHF, COPD, Diabetes, Dyslipidemia and Hypertension Past Surgical History: No Surgical History: No History Family History Family Medical History: Cancer, [place] and Coronary Artery Disease Social History Do you use any recreational Drugs:: No ROS Review of Systems Constitutional: No Symptoms Reported Eyes: No Symptoms Reported ENTM: No Symptoms Reported Respiratoy: See HPI and Short of Breath Cardiovascular: No Symptoms Reported, See HPI and Chest Pain Gastrointestinal/Abdominal: No Symptoms Reported Genitourinary: No Symptoms Reported Neurological: No Symptoms Reported Musculoskeletal: No Symptoms Reported Integumentary: No Symptoms Reported Hematologic/Lymphatic: No Symptoms Reported Endocrine: No Symptoms Reported Psychiatric: No Symptoms Reported All Other Systems: Reviewed and Negative PE Vital Signs Vitals: Vital Signs Temperature 99.0 F Pulse Rate 94 Pulse Rate 101 Pulse Rate 93 Pulse Rate 92 Pulse Rate 93 Pulse Rate 90 Pulse Rate 96 Pulse Rate 95 Pulse Rate 92 Pulse Rate 87 Pulse Rate 88 Pulse Rate 90 Pulse Rate 84 Pulse Rate 95 Pulse Rate 87 Pulse Rate 88 Pulse Rate 84 Respiratory Rate 39 Respiratory Rate 30 Respiratory Rate 24 Respiratory Rate 33 Respiratory Rate 39 Respiratory Rate 30 Respiratory Rate 23 Respiratory Rate 23 Respiratory Rate 24 Respiratory Rate 21 Respiratory Rate 28 Respiratory Rate 37 Respiratory Rate 27 Respiratory Rate 27 Blood Pressure 109/52 Blood Pressure 127/88 Blood Pressure 123/98 Blood Pressure 118/93 O2 Sat by Pulse Oximetry 100 O2 Sat by Pulse Oximetry 95 O2 Sat by Pulse Oximetry 100 O2 Sat by Pulse Oximetry 97 O2 Sat by Pulse Oximetry 94 General Limitations: No Limitations General Appearance: Alert and In No Apparent Distress (DisheveledSmells of urine) Head Head Exam: Normal Inspection Eyes Eye exam: Normal Appearance ENT ENT Exam: Normal Exam, Normal Oropharynx and Normal External Ear Exam Neck Neck Exam: Normal Inspection and Full ROM Chest Chest Inspection: Normal Inspection Respiratory Respiratory Exam: Normal Lung Sounds Bilat Cardiovascular Cardiovascular Exam: Regular Rate and Normal Rhythm Abdominal Exam Abdominal Exam: Soft and Other (Obesity) Rectal Rectal Exam: Deferred Extremeties Extremities Exam: Edema and Other (Lower extremity edema and erythema) Back Back Exam: Normal Inspection and Full ROM Neurologic Neurological Exam: Alert and Oriented X3 Psychiatric Psychiatric Exam: Normal Affect and Normal Mood Skin Skin Exam: Warm, Dry, Intact and Normal Color COURSE Treatment Treatment: Patient agrees to admission discussed with Dr. Rich who agrees to admit [facility] Labs Reviewed 12/28/24 10:42 12/28/24 10:42 Laboratory: WBC 12.8 X10^3/uL (3.6-10.0) H 12/28/24 10:42 RBC 4.28 X10^6/uL (4.7-6.0) L 12/28/24 10:42 Hgb 11.7 g/dL (13.5-18.0) L 12/28/24 10:42 Hct 37.5 % (42.0-54.0) L 12/28/24 10:42 MCV 87.7 fL (80.0-100.0) 12/28/24 10:42 MCH 27.3 pg (27.0-34.0) 12/28/24 10:42 MCHC 31.1 g/dL (33.0-35.0) L 12/28/24 10:42 RDW 18.1 % (11.6-16.5) H 12/28/24 10:42 Plt Count 294 X10^3/uL (150.0-450.0) 12/28/24 10:42 Plt Count Comment Adequate (ADEQUATE) 12/28/24 10:42 MPV 8.2 fL (7.4-11.0) 12/28/24 10:42 Neut % (Auto) 85.1 % (42.0-75.0) H 12/28/24 10:42 Lymph % (Auto) 6.6 % (21.0-51.0) L 12/28/24 10:42 [place] % (Auto) 6.5 % (0.0-13.0) 12/28/24 10:42 Eos % (Auto) 1.3 % (0.9-2.9) 12/28/24 10:42 Baso % (Auto) 0.5 % (0.2-1.0) 12/28/24 10:42 Neut # (Auto) 10.9 x10^3/uL (2.2-4.8) H 12/28/24 10:42 Lymph # (Auto) 0.8 X10^3/uL (1.3-2.9) L 12/28/24 10:42 [place] # (Auto) 0.8 x10^3/uL (0.3-0.8) 12/28/24 10:42 Eos # (Auto) 0.2 x10^3/uL (0.0-0.2) 12/28/24 10:42 Baso # (Auto) 0.1 X10^3/uL (0.0-0.1) 12/28/24 10:42 Absolute Nucleated RBC 0.0 /100WBC 12/28/24 10:42 Total Counted 100 12/28/24 10:42 Neutrophils % (Manual) 87 % (39-76) H 12/28/24 10:42 Band Neutrophils % 4 % (0-10) 12/28/24 10:42 Lymphocytes % (Manual) 6 % (13-43) L 12/28/24 10:42 Monocytes % (Manual) 1 % (4-9) L 12/28/24 10:42 Eosinophils % (Manual) 1 % (0-6) 12/28/24 10:42 Basophils % (Manual) 1 % (0-1) 12/28/24 10:42 Plt Morphology Comment Normal (NORMAL) 12/28/24 10:42 RBC Morphology Abnormal (NORMAL) 12/28/24 10:42 Anisocytosis Slight A 12/28/24 10:42 Sample Site Lr 12/28/24 11:58 ABG pH 7.290 (7.35-7.45) L 12/28/24 11:58 ABG pCO2 65.0 mmHg (35.0-45.0) H* 12/28/24 11:58 ABG pO2 52.0 mmHg (80.0-100.0) L 12/28/24 11:58 ABG HCO3 31.3 mmol/L (22-26) H* 12/28/24 11:58 ABG O2 Saturation 82.0 % (90-100) L* 12/28/24 11:58 ABG Base Excess 3.1 mmol/L (-2.0-2.0) H 12/28/24 11:58 Adan Test Pos 12/28/24 11:58 A-a Gradient 95.0 mmHg 12/28/24 11:58 FiO2 32.0 12/28/24 11:58 Blood Gas Comments Nancy well cb 12/28/24 11:58 Sodium 136 mmol/L (136-145) 12/28/24 10:42 Corrected Sodium TNP 12/28/24 10:42 Potassium 5.6 mmol/L (3.5-5.1) H 12/28/24 10:42 Chloride 99 mmol/L (98-107) 12/28/24 10:42 Carbon Dioxide 29.8 mmol/L (21-32) 12/28/24 10:42 BUN 34 mg/dL (7-18) H 12/28/24 10:42 Creatinine 3.04 mg/dL (0.70-1.30) H 12/28/24 10:42 Est GFR (MDRD) Af Amer 28 (>60) L 12/28/24 10:42 Est GFR (MDRD) Non-Af 23 (>60) L 12/28/24 10:42 Glucose 101 mg/dL (65-99) H 12/28/24 10:42 Lactic Acid 1.3 mmol/L (0.4-2.0) 12/28/24 10:42 Calcium 8.8 mg/dL (8.5-10.1) 12/28/24 10:42 Corrected Calcium 9.4 mg/dL (8.5-10.1) 12/28/24 10:42 Total Bilirubin 0.30 mg/dL (0.2-1.0) 12/28/24 10:42 AST 16 Units/L (15-37) 12/28/24 10:42 ALT 16 Units/L (12-78) 12/28/24 10:42 Alkaline Phosphatase 178 Units/L (46-116) H 12/28/24 10:42 Troponin I High Sens 10.0 ng/L (4.0-60.0) 12/28/24 10:42 B-Natriuretic Peptide 332 pg/mL (0-79) H 12/28/24 10:42 Total Protein 7.2 g/dL (6.4-8.2) 12/28/24 10:42 Albumin 3.3 g/dL (3.4-5.0) L 12/28/24 10:42 Globulin 3.9 g/dL (2.5-4.5) 12/28/24 10:42 Albumin/Globulin Ratio 0.8 Ratio (1.1-2.1) L 12/28/24 10:42 Amylase 47 Units/L (25-115) 12/28/24 10:42 Lipase 30 Units/L (16-77) 12/28/24 10:42 Specimen Type Clean catch urine 12/28/24 12:08 Urine Color Straw (YELLOW) 12/28/24 12:08 Urine Appearance Clear (CLEAR) 12/28/24 12:08 Urine pH 6.0 (5.0 - 8.0) 12/28/24 12:08 Ur Specific [place] 1.010 (1.000-1.030) 12/28/24 12:08 Urine Protein 1+ (NEGATIVE) 12/28/24 12:08 Urine Glucose (UA) 2+ (NEGATIVE) 12/28/24 12:08 Urine Ketones Negative (NEGATIVE) 12/28/24 12:08 Urine Blood Negative (NEGATIVE) 12/28/24 12:08 Urine Nitrite Negative (NEGATIVE) 12/28/24 12:08 Urine Bilirubin Negative (NEGATIVE) 12/28/24 12:08 Urine Urobilinogen Normal (NORMAL) 12/28/24 12:08 Ur Leukocyte Esterase Negative (NEGATIVE) 12/28/24 12:08 Urine RBC None seen /HPF (0-3) 12/28/24 12:08 Urine WBC None seen /HPF (0-5) 12/28/24 12:08 Ur Squamous Epith Cells Rare /HPF (NEGATIVE) 12/28/24 12:08 Urine Bacteria Negative /HPF (NEGATIVE) 12/28/24 12:08 Ur Culture Indicated? No/not indicated 12/28/24 12:08 Urine Opiates Screen Negative (NEG=<300) 12/28/24 12:08 Urine Methadone Screen Negative (NEG=<300) 12/28/24 12:08 Ur Barbiturates Screen Negative (NEG=<200) 12/28/24 12:08 Ur Phencyclidine Scrn Negative (NEG=<25) 12/28/24 12:08 Ur Amphetamines Screen Negative (NEG=<1000) 12/28/24 12:08 U Benzodiazepines Scrn Negative (NEG=<200) 12/28/24 12:08 Urine Cocaine Screen Negative (NEG=<300) 12/28/24 12:08 U Marijuana (THC) Screen Positive (NEG=<50) A 12/28/24 12:08 Ethyl Alcohol mg/dL < 3 mg/dL (0-19.9) 12/28/24 10:42 Opioid Opioid Risk Tool Age (Jeremías box if 16-45): No History of Preadolescent Sexual Abuse: No Total: 0 Total Score Risk Category: Low Risk Copyright: Dipesh SMITH predicting aberrant behaviors Discharge Plan Diagnosis Discharge Problem: Acute kidney insufficiency, Hyperkalemia Discharge Plan Patient Disposition: ADMITTED INPATIENT Condition: Stable Prescriptions: No Action gabapentin 300 mg Capsule 300 mg PO TID aspirin 81 mg tablet,delayed release (DR/EC) 81 mg PO QDAY atorvastatin 40 mg tablet 40 mg PO QPM torsemide 20 mg tablet 20 - 40 mg PO QDAY PRN meloxicam 7.5 mg tablet 7.5 mg PO QDAY hydrocodone-acetaminophen 7.5-325 mg tablet 1 tab PO QID PRN (Reason: pain) montelukast 10 mg tablet 10 mg PO DAILY allopurinol 300 mg tablet 300 mg PO QDAY mupirocin 2 % ointment 1 applic TOPICAL TID metformin 500 mg tablet extended release 24 hr 1,000 mg PO BID lisinopril 2.5 mg tablet 2.5 mg PO BID metoprolol tartrate 25 mg tablet 25 mg PO BID roflumilast 500 mcg tablet 500 mcg PO QDAY Eliquis 5 mg tablet 5 mg PO BID dapagliflozin propanediol [Farxiga] 10 mg tablet 10 mg PO QAM anastrozole 1 mg tablet 1 mg PO DAILY Patient Comments: TAKE ONE TABLET BY MOUTH ONCE DAILY IN THE MORNING Trelegy Ellipta 200-62.5-25 mcg blister with device 1 inh inhalation Q24H Qty: 60 4RF Rx Instructions: 1 inhalation every morning testosterone cypionate 200 mg/mL oil 200 mg IM QWEEK MDD 200 Qty: 10 2RF Rx Instructions: 200mg im weekly Health Concerns: Post Hospitalization: new medications and changes needed to prevent readmission or further decline. Pt educated and given instructions on all concerns. Plan of Treatment: Continue with present treatment and follow up plan. Pt is to keep follow up appointment as instructed and take medications as ordered. Orders to Discharge Patient Discharge Orders: Transfer (Routine); Ordered 12/28/24 Ordered By: Rory Herron Follow ups/Referrals Follow ups/Referrals: ,Misc [Primary Care Provider] - 3 days Instructions Print Language: PUERTO RICAN
[2024-12-28 10:54] LABS: MEAN PLATELET VOLUME 8.2 fL (7.4-11.0); RED CELL DISTRIBUTION WIDTH 18.1 % (11.6-16.5)
[2024-12-28 11:13] LABS: BAND NEUTROPHILS % 4 % (0-10); BASOPHILS % (MANUAL) 1 % (0-1); PLATELET MORPHOLOGY COMMENT NORMAL (NORMAL)
[2024-12-28 11:17] LABS: COR CA(FOR HYPOALB) 9.4 mg/dL (8.5-10.1); CREATININE 3.04 mg/dL (0.70-1.30); eGFR NON BLACK RACES 23 (>60)
[2024-12-28 11:21] LABS: BLOOD ALCOHOL < 3 mg/dL (0-19.9)
[2024-12-28 12:04] LABS: ABG BASE EXCESS 3.1 mmol/L (-2.0-2.0); ABG PCO2 65.0 mmHg (35.0-45.0); ABG PH 7.290 (7.35-7.45); ABG PO2 52.0 mmHg (80.0-100.0)
[2024-12-28 12:05] LABS: ABG ALLEN TEST POS; ABG HCO3 31.3 mmol/L (22-26); ABG OXYGEN SATURATION 82.0 % (90-100)
[2024-12-28] MEDS: NS 1,000 ML IV 1,000 ML IV ONE (12:08)
[2024-12-28 12:20] LABS: BLOOD/HEMOGLOBIN,URINE NEGATIVE (NEGATIVE); LEUKOCYTE ESTERASE ,URINE NEGATIVE (NEGATIVE); NITRITES,URINE NEGATIVE (NEGATIVE)
--- NOTE | 2024-12-28 12:26 | EKG ---
Test Reason : dyspnea Blood Pressure : */* mmHG Vent. Rate : 94 BPM Atrial Rate : 94 BPM P-R Int : 170 ms QRS Dur : 90 ms QT Int : 324 ms P-R-T Axes : 73 94 61 degrees QTc Int : 405 ms Normal sinus rhythm Rightward axis Borderline ECG When compared with ECG of 25-NOV-2024 08:02, No significant change was found Confirmed by Rocco Nuno MD ([id number]) on 12/28/2024 12:39:43 PM Referred By: Confirmed By: Rocco Nuno MD
[2024-12-28 12:29] LABS: APPEARANCE,URINE CLEAR (CLEAR); SQUAMOUS EPITHELIAL CELL,UR RARE /HPF (NEGATIVE)
--- NOTE | 2024-12-28 12:39 | CT ---
EXAM: BRAIN W/O CON HISTORY: AMS; COMPARISON: Head CT 04/08/2023 TECHNIQUE: Multiple CT axial images of the brain were obtained without IV contrast. Coronal and sagittal images were reconstructed. Dose reduction techniques included Automated Exposure Control (AEC) and adjustment of mA and kV. FINDINGS: Motion artifact degrades many of the images, even though the technologist repeated the exam. [place] and white matter have normal differentiation. There is no mass, shift, or hemorrhage. Cerebellar tonsils are at an appropriate level. No fluid in the sinuses or mucosal thickening to suggest sinusitis. There is no mastoid effusion. IMPRESSION: 1. No acute finding 2. Significant motion artifact degradation THIS IS AN ELECTRONICALLY VERIFIED FINAL REPORT 12/28/2024 12:36 PM - Electronically signed by Michael Thompson MD
--- NOTE | 2024-12-28 12:44 | CT ---
EXAM: CHEST W/O CON HISTORY: DYSPNEA; COMPARISON: Chest CT 11/25/2024, chest radiograph 04/10/2024 TECHNIQUE: Multiple CT axial images of the chest were obtained without IV contrast. Coronal and sagittal images were reconstructed. Dose reduction techniques included Automated Exposure Control (AEC) and adjustment of mA and kV. FINDINGS: Cardiomegaly is present. It measures 16.6 cm, previously 13.9. This is new since the prior study 11/25/2024; such rapid enlargement suggests that this could be due to systemic hypervolemia. The pulmonary artery and aorta have a normal caliber. No mediastinal mass or significant lymphadenopathy. The thyroid has a normal size and configuration. No axillary mass or significant axillary lymphadenopathy is identified. There are linear or triangular areas of airspace opacity in the right lower lobe as well as the right upper lobe. These have the appearance of atelectasis. No pleural effusion. Limited images of the upper abdomen show no significant abnormality. Degenerative spondylitic changes are present in the spine. IMPRESSION: 1. New cardiomegaly 2. Right lung atelectasis THIS IS AN ELECTRONICALLY VERIFIED FINAL REPORT 12/28/2024 12:41 PM - Electronically signed by Michael Thompson MD
[2024-12-28] MEDS ORDERED: NORCO 5/325 MG TAB PO PRN (13:39)
[2024-12-28] MEDS ORDERED: TYLENOL 325 MG TAB PO PRN (13:39)
[2024-12-28] MEDS ORDERED: ULTRAM PO PRN (13:39)
[2024-12-28] MEDS ORDERED: CONSULT PHARMACY - POTASSIUM & MAGNESIUM XX SCH (14:00)
[2024-12-28] MEDS: KAYEXALATE SUSP PO NR (15:19)
[2024-12-28] MEDS: NEURONTIN CAP 300 MG PO SCH (15:19)
[2024-12-28 16:01] VITALS: BMI 45.9
[2024-12-28] MEDS: LOKELMA POWDER PO SCH (16:10)
[2024-12-28] MEDS: ZESTRIL TAB 5 MG PO SCH (20:22)
[2024-12-28] MEDS: LOPRESSOR TAB 25 MG PO SCH (20:23)
[2024-12-28] MEDS: LIPITOR TAB 40 MG PO SCH (20:23)
[2024-12-28] MEDS: GLUCOPHAGE XR 24-HR PO SCH (22:41)
[2024-12-29 05:57] LABS: MEAN PLATELET VOLUME 8.7 fL (7.4-11.0); RED CELL DISTRIBUTION WIDTH 18.8 % (11.6-16.5)
[2024-12-29 06:11] LABS: COR CA(FOR HYPOALB) 10.0 mg/dL (8.5-10.1); CREATININE 2.01 mg/dL (0.70-1.30); eGFR NON BLACK RACES 37 (>60)
[2024-12-29] MEDS ORDERED: ZYLOPRIM PO SCH (09:00)
[2024-12-29] MEDS: ZYLOPRIM PO SCH (09:42)
[2024-12-29] MEDS: ARIMIDEX PO SCH (09:44)
[2024-12-29] MEDS: ASPIRIN EC 81 MG PO SCH (09:44)
[2024-12-29] MEDS: ELIQUIS PO SCH (09:44)
[2024-12-29] MEDS: GLUCOPHAGE XR 24-HR PO SCH (09:44)
[2024-12-29] MEDS: FARXIGA PO SCH (09:44)
[2024-12-29 16:24] LABS: COR NA(FOR HYPERGLY) 142.0 mmol/L (136-145); CREATININE 2.14 mg/dL (0.70-1.30); eGFR NON BLACK RACES 34.0 (>60)
[2024-12-29] MEDS: NORCO 10/325 TAB PO PRN (21:23)
[2024-12-30 05:51] LABS: MEAN PLATELET VOLUME 8.6 fL (7.4-11.0); RED CELL DISTRIBUTION WIDTH 18.3 % (11.6-16.5)
[2024-12-30 06:06] LABS: COR CA(FOR HYPOALB) 10.0 mg/dL (8.5-10.1); CREATININE 1.74 mg/dL (0.70-1.30); eGFR NON BLACK RACES 43 (>60)
[2024-12-30 07:45] VITALS: BP 157/77; PULSE 82; TEMP 98.9; O2SAT 95
[2024-12-30 09:01] VITALS: RESP 18
== END 2024-12-30 10:45 | disposition home or self-care (01) ==
LOC: ER 10:08 → MED/SURG 10:08
PROVIDERS: ADMIT Obstetrics & Gynecology Obstetrics; ATTEND Obstetrics & Gynecology Obstetrics
DX: Z79.01 Long term (current) use of anticoagulants; J44.89 Other specified chronic obstructive pulmonary disease; I50.9 Heart failure, unspecified; I11.0 Hypertensive heart disease with heart failure; I25.10 Atherosclerotic heart disease of native coronary artery without angina pectoris; E87.5 Hyperkalemia; J98.11 Atelectasis; Z72.0 Tobacco use; D64.89 Other specified anemias; D72.828 Other elevated white blood cell count; R74.8 Abnormal levels of other serum enzymes; R94.4 Abnormal results of kidney function studies; R41.82 Altered mental status, unspecified; R79.89 Other specified abnormal findings of blood chemistry; R06.09 Other forms of dyspnea; Z98.890 Other specified postprocedural states; E11.65 Type 2 diabetes mellitus with hyperglycemia; N17.8 Other acute kidney failure; F12.90 Cannabis use, unspecified, uncomplicated; M19.90 Unspecified osteoarthritis, unspecified site; Z99.81 Dependence on supplemental oxygen; R26.89 Other abnormalities of gait and mobility; E86.0 Dehydration